=== PATIENT | female | born 1940 | race Caucasian/White ===

== ENCOUNTER 2017-08-09 15:30 | Inpatient (IN) ==
--- NOTE | 2017-08-09 17:54 | Internal Med History&Physical ---
Date of Encounter: 08/09/17 Time of Encounter: 17:51 Assessment and Plan (1) Acute diastolic heart failure Current visit: Yes Status: Acute No echocardiogram and her records. We will obtain echocardiogram. IV Cardizem to control rate. IV Lasix. Strict I's and O's. (2) Chronic kidney disease, stage III (moderate) Current visit: Yes Status: Acute Monitor kidney function closely. Avoid nephrotoxins. (3) Atrial fibrillation with RVR Current visit: No Status: Acute Check TSH, free T4. Trend troponin. Cardiac monitoring. Titrate Cardizem drip. Heart rate currently 120-140. At IV metoprolol if heart rate remains uncontrolled. Obtain echocardiogram. Consult cardiology. She is at high risk for morbidity and complications due to IV Cardizem infusion which requires close monitoring of vital signs. (4) Pulmonary edema Current visit: No Status: Acute l Secondary to acute diastolic heart failure triggered by A. fib with RVR. We will treat her with rate control. IV Lasix. Strict I's and O's. Daily weights. Fluid restriction. Qualifiers: Chronicity: acute Qualified Code(s): J81.0 - Acute pulmonary edema Internal Medicine - H&P: HPI Chief complaint: Shortness of breath Admitted From: Emergency Dept Plans for Post Hospital Care: Home History of present illness: Ms. Lipscomb is a 77 year old female with past medical history significant for hypertension, diabetes, chronic kidney disease and atrial fibrillation who presented to an outside hospital for shortness of breath. Today she experienced severe shortness of breath, triggered by minimal exertion such as walking a few feet and tying her shoelaces, not associated with cough chest pain or fever. Symptoms have been progressive for the last 2 weeks. 3 days ago she saw her family doctor who did an EKG diagnosed her with atrial fibrillation. He started her on Xarelto and metoprolol. Her symptoms did not improve and therefore today she presented to the hospital. At an outside facility she was found to be in A. fib with RVR. She was given IV Cardizem and initially converted to sinus rhythm however soon thereafter reverted to atrial fibrillation. She was transferred to our hospital for further care. A 10 point review of systems was negative except as stated above. Past medical history also includes history of stroke, surgical history cholecystectomy Family history pertinent for coronary artery disease in the patient's mother and cancer in the patient's father. Denies tobacco, alcohol and drug use. Lives at home independently. Past Med Surg Social Fam HX - Past Medical History Medical history: atrial fibrillation, CVA, diabetes, hyperlipidemia, hypertension, renal disease, other Psychiatric history: no psych history - Past Surgical History Surgical History: cholecystectomy - Social History Smoking Status: Never smoker Smokeless Tobacco Status: No Alcohol use: none Drug use: none - Family History Mother Adopted: [place]: Hussein Marissa Family Member Ethnicity: Non- Living Status: Age at : 89 Hx Family Cardiac Disorders: Yes ([place]) Hx Family Genitourinary Disorders: Yes (Kidney) Internal Medicine - H&P: Meds Calc/D3/Mag/Zn/Reed/Aris/[place] [Calcium 600 mg Plus Vit D Tab] 1 each PO DAILY 06/29/16 [History] Multivitamin [Multi-Day Vitamins] 1 each PO DAILY 06/29/16 [History] [place]-3 Fatty Acids [Fish Oil] 300 mg PO DAILY 06/29/16 [History] Vit C/Vit E AC/Lut/Copper/Zinc [Preservision Lutein Softgel] 1 each PO DAILY [History] Atorvastatin Calcium 80 mg PO DAILY 02/05/17 [History] Aspirin 81 mg PO DAILY 08/09/17 [History] Furosemide [Lasix] 40 mg PO DAILY 08/09/17 [History] Metoprolol Tartrate [Lopressor] 50 mg PO BID 08/09/17 [History] Potassium Chloride Er 1 PO DAILY 08/09/17 [History] Rivaroxaban [Xarelto] 20 mg PO DAILY 08/09/17 [History] 3 Allergy/AdvReac Type Severity Reaction Status Date / Time lisinopril Allergy Swelling Verified 08/09/17 12:55 of Lip/Tongue/Throat All Systems PM: A 10-system review of systems was performed and is negative for pertinent findings except as documented above in the HPI. - Head Head exam: Present: atraumatic, normocephalic - Eye Eye exam: Present: PERRL, conjuntiva pink, sclera anicteric Pupils: Present: PERRL - Neck Neck exam general surgery: Present: supple, trachea midline. Absent: lymphadenopathy - Respiratory Respiratory exam: Present: CTAB. Absent: accessory muscle use, rales, rhonchi, wheezes - Cardiovascular Cardiovascular exam: Present: irregular rhythm, +S1, +S2, tachycardia. Absent: diastolic murmur, gallop, rubs, systolic murmur - GI/Abdominal GI/Abdominal exam: Present: normal bowel sounds, soft, no peritoneal signs. Absent: distended, tenderness - Extremities Exam Extremities exam: Present: pedal edema (2+ lower extremity pitting edema bilaterally), warm, radial pulses palpable and symmetrical. Absent: calf tenderness, cyanotic - Neurological Exam Neurological exam: Present: CN II-XII intact, oriented X3, no focal deficits. Absent: facial droop, speech deficit - Skin Skin exam: Present: dry, intact Internal Med - H&P Results - Labs Labs: Upon review of medical records from [facility]: Lab work from 08/09/2017: With blood cell count 10.2, hemoglobin 13.9, INR 2.0, sodium 140, potassium 4.2, BUN 42, creatinine 1.83. BNP 814, troponin less than 0.03. - Impressions XR/XR chest 1V portable IMPRESSION: 1. New bilateral effusions with underlying bibasilar opacities most likely representing passive atelectasis, worse on the right. 2. Interstitial and perihilar airspace opacities suggestive of edema. Pneumonia could appear similar.
[2017-08-09] MEDS ORDERED: OXYCODONE Oral CONC 10 MG/0.5 ML ORAL.SYG SL PRN (18:04)
[2017-08-09] MEDS ORDERED: Ondansetron 4 MG/2 ML VIAL IVP PRN (18:04)
[2017-08-09] MEDS ORDERED: Acetaminophen 325 MG TABLET PO PRN (18:04)
[2017-08-09] MEDS ORDERED: Naloxone 0.4 MG/ML INJ IVP PRN (18:04)
[2017-08-09] MEDS: Aspirin 81 MG TAB.CHEW PO SCH (18:51)
[2017-08-09] MEDS ORDERED: *HR* Metoprolol 5 MG/5 ML VIAL IVP PRN (19:07)
[2017-08-09 19:14] LABS: INR 1.8; Prothrombin Time 20.1 Seconds (9.4-12.1)
[2017-08-09 19:26] LABS: Troponin I < 0.03 ng/mL (< 0.04)
[2017-08-09] MEDS ORDERED: Furosemide 20 MG/2 ML VIAL IVP ONE (19:30)
[2017-08-09 19:43] LABS: Thyroid Stimulating Hormone 3.266 mcIU/mL (0.340-5.600)
[2017-08-10 01:41] LABS: Basophils # 0.1 K/mcL (0.0-0.2); Basophils % 0.7 %; Eosinophils # 0.1 K/mcL (0.0-0.6); Eosinophils % 1.4 %; Hematocrit 38.8 % (35.3-44.9); Hemoglobin 12.6 g/dL (11.5-15.4); Immature Granulocytes % 0.3 % (0-4); Lymphocytes # 2.2 K/mcL (0.6-4.6); Lymphocytes % 21.4 %; Mean Corpuscular HGB Conc 32.5 g/dL (31.6-35.5); Mean Corpuscular Hemoglobin 28.8 pg (28.0-33.3); Mean Corpuscular Volume 88.8 fL (83.0-100.0); Monocytes # 1.1 K/mcL (0.0-1.3); Monocytes % 10.4 %; Neutrophils # 6.6 K/mcL (1.6-8.9); Platelet Count 272 K/mcL (140-400); Red Blood Count 4.37 M/mcL (3.82-4.97); Red Cell Distribution Width 14.3 % (11.5-14.5); Segmented Neutrophils % 65.8 %
[2017-08-10 02:09] LABS: Calcium 8.6 mg/dL (8.6-10.3); Potassium 3.9 mEq/L (3.5-5.1)
[2017-08-10] MEDS ORDERED: Furosemide 20 MG/2 ML VIAL IVP ONE (03:00)
[2017-08-10] MEDS ORDERED: Furosemide 40 MG/4 ML VIAL IVP SCH (08:00)
[2017-08-10] MEDS: Aspirin 81 MG TAB.CHEW PO SCH (08:48)
[2017-08-10] MEDS ORDERED: *HR* Rivaroxaban 10 MG TABLET PO SCH (09:00)
--- NOTE | 2017-08-10 09:29 | Cardiology Consult Note ---
Date of Encounter: 08/10/17 Time of Encounter: 09:27 Assessment and Plan (1) CHF (congestive heart failure), NYHA class III Current Visit: Yes Status: Acute Complaining of dyspnea on exertion and orthopnea for the last 2 weeks. Currently chest x-ray shows pulmonary edema Lasix 20 mg IV Q8 hours times to and hold to reassess portable chest x-ray Fierro catheter strict I/O's ischemic work up when you euvolemic Qualifiers: Congestive heart failure type: unspecified Qualified Code(s): I50.9 - Heart failure, unspecified (2) Atrial fibrillation with RVR Current Visit: Yes Status: Acute Likely new onset atrial fibrillation hold xarelto and start IV heparin per DVT protocol titrate Cardizem drip to heart rate below 100 and hold for systolic blood pressure less than 100 mmHg echocardiogram pending Discussion w patient/family: The assessment and plan as outlined above was discussed with the patient and/or family members who expressed understanding and agreement. All questions were answered. Thank you for involving us in the care of your patient. Please call with any questions. History of Present Illness Consult date: 08/10/17 Consult reason: Afib Chief complaint: SOB and palpitations History of present illness: Ms. Lipscomb is a 77 year old female with history of hypertension, chronic kidney disease, recent diagnosis of atrial fibrillation presents with shortness of breath on exertion for the last 2 weeks. She was seen and evaluated by her primary care physician and started on anticoagulation as well as metoprolol. She has an elevated BNP of 814 and elevated creatinine. Her chest x-ray shows bilateral effusions and pulmonary edema. She denies specifically chest pain however describes chest tightness with her shortness of breath. Currently her components are negative however in June 2016 she was found to have a troponin of .44 on record. She denies any cardiac testing or procedures in the past Past Med Surg Social Fam HX - Past Medical History Medical history: atrial fibrillation, CVA, diabetes, hyperlipidemia, hypertension, renal disease, other Psychiatric history: no psych history - Past Surgical History Surgical History: cholecystectomy - Social History Smoking Status: Never smoker Smokeless Tobacco Status: No Alcohol use: none Drug use: none - Family History Mother Adopted: [place]: [employer] Family Member Ethnicity: Non- Living Status: Age at : 89 Hx Family Cardiac Disorders: Yes ([place]) Hx Family Genitourinary Disorders: Yes (Kidney) Medications and Allergies Calc/D3/Mag/Zn/Reed/Aris/[place] [Calcium 600 mg Plus Vit D Tab] 1 each PO DAILY 06/29/16 [History] Multivitamin [Multi-Day Vitamins] 1 each PO DAILY 06/29/16 [History] [place]-3 Fatty Acids [Fish Oil] 300 mg PO DAILY 06/29/16 [History] Vit C/Vit E AC/Lut/Copper/Zinc [Preservision Lutein Softgel] 1 each PO DAILY [History] Atorvastatin Calcium 80 mg PO DAILY 02/05/17 [History] Aspirin 81 mg PO DAILY 08/09/17 [History] Furosemide [Lasix] 40 mg PO DAILY 08/09/17 [History] Metoprolol Tartrate [Lopressor] 50 mg PO BID 08/09/17 [History] Potassium Chloride Er 1 PO DAILY 08/09/17 [History] Rivaroxaban [Xarelto] 20 mg PO DAILY 08/09/17 [History] 3 Allergy/AdvReac Type Severity Reaction Status Date / Time lisinopril Allergy Swelling Verified 08/09/17 12:55 of Lip/Tongue/Throat All Systems Review: The remainder of the systems were reviewed and are negative Physical Examination Vital Signs, Last 4 Hours Temp Pulse Resp BP Pulse Ox 08/10/17 07:22 97.4 F L 130 17 102/85 93 08/10/17 06:00 92 16 108/93 95 08/10/17 05:40 96 16 99/59 97 General: Conversant, No Apparent Distress HEENT: Atraumatic, Normocephaly, Mucus Membranes Moist Neck: No JVD, Normal carotid pulses Cardiac: Reg Rate and Rhythm (Irregular irregular rhythm), Normal S1 and S2, No Murmur Lungs: Normal Breath Sounds, No Wheeze, Rales, Rhonchi (bibasilar crackles), Other Neuro: Alert and responsive, No focal deficits noted Abdomen: Soft, Non-Tender Skin: No rashes noted on visualized skin Musculoskeletal: No Chest Wall Tenderness Extremities: No Clubbing, No Cyanosis, No Edema (Bilateral lower extremity edema ), Normal Pulses Results 08/10/17 00:27 08/10/17 00:27 Lab Results 08/09/17 08/09/17 08/10/17 18:30 18:30 00:27 WBC Hgb Hct Plt Count INR 1.8 Sodium Potassium Chloride Carbon Dioxide BUN Creatinine Glucose Calcium Magnesium Troponin I < 0.03 < 0.03 TSH 3.266 08/10/17 08/10/17 00:27 00:27 WBC 10.1 Hgb 12.6 Hct 38.8 Plt Count 272 INR Sodium 143 Potassium 3.9 Chloride 112 H Carbon Dioxide 22 L BUN 43 H Creatinine 1.54 H Glucose 162 H Calcium 8.6 Magnesium 2.0 Troponin I TSH Consult Discharge Plan - Plan Referrals: Jimmy Andrew MD [Primary Care Provider] -
[2017-08-10] MEDS ORDERED: *HR* Rivaroxaban 15 MG TABLET PO SCH ×2 (10:30→17:00)
--- NOTE | 2017-08-10 10:30 | Event Note ---
Date of Encounter: 08/10/17 Time of Encounter: 10:20 - Cardiology Event Note Per Dr. Lopes: Patient will likely need an ischemic evaluation (stress vs. LHC). Hold Xarelto (afib), will start Heparin gtt per standard protocol 24 hours after Xarelto dose (given 08/10/17 at 0848). Orders placed to start heparin gtt tomorrow at 0840. See Cardiology consult note for full recommendations. Will continue to follow.
[2017-08-10] MEDS ORDERED: Furosemide 40 MG/4 ML VIAL IVP ONE (13:46)
--- NOTE | 2017-08-10 13:55 | Internal Med Progress Note ---
Date of Encounter: 08/10/17 Time of Encounter: 13:47 - Assessment and plan (1) Atrial fibrillation with RVR Current Visit: Yes Status: Acute Assessment and plan: New onset atrail fib, continue BB, d/c cardiazem drip, start amiodarone due to low EF 20%-30% normal TSH, negative trop (2) Acute respiratory failure with hypoxia Current Visit: Yes Status: Acute Assessment and plan: from pulmonary edema, and acute CHF, will give iv lasix, O2 (3) Chronic kidney disease, stage III (moderate) Current Visit: Yes Status: Acute Assessment and plan: CKD III with leg swelling, monitor Cr (4) CHF (congestive heart failure), NYHA class III Current Visit: Yes Status: Acute Assessment and plan: Acute systolic CHF with EF 20-30%, continue BB, lasix check BNP cardiology is on board, will need ischemic work up Qualifiers: Congestive heart failure type: systolic Congestive heart failure chronicity : acute Qualified Code(s): I50.21 - Acute systolic (congestive) heart failure (5) Hypertension Current Visit: Yes Status: Acute Assessment and plan: was won amlodipine, on hold due to CHF Qualifiers: Hypertension type: essential hypertension Qualified Code(s): I10 - Essential (primary) hypertension - Time Spent With Patient 25 - 35 minutes - Subjective Interval history: Ms. Lipscomb is a 77 year old female with past medical history significant for hypertension, diabetes, chronic kidney disease and atrial fibrillation who presented to an outside hospital for shortness of breath and leg swelling. Symptoms have been progressive for the last 2 weeks. 3 days ago she saw her family doctor who did an EKG diagnosed her with atrial fibrillation. He started her on Xarelto and metoprolol. Her symptoms did not improve and therefore today she presented to the hospital. At an outside facility she was found to be in A. fib with RVR. She was admitted for atrial fib with RVR. 1. New atrial fib with RVR, conitnue heparin drip, BB 2. New acute systolic CHF with EF 20-30 %, conitnue BB, cardiology is on board, give IV lasix 40 mg times one 3. acute Hypoxic respiratory failure from pulmonary edemia from CHF, on O2 4. CKD III Patient is still any shortness of breasts, and the severe swelling to lower extremity discussed with wean off cardiazem drip due to low EF, will use amiodarone if HR is unable to control - Constitutional Vitals: Temp Pulse Resp BP Pulse Ox 97.6 F 103 15 113/72 91 08/10/17 11:19 08/10/17 11:19 08/10/17 11:19 08/10/17 11:19 08/10/17 11:19 General appearance: Present: A&O X 3, pleasant, no acute distress Exam: CONSTITUTIONAL: patient appears as an age appropriate female in no acute distress. EYES Clear sclerae, bilateral pupils are equal, reactive to light. EMOI. RESPIRATORY: No accessory muscle use, bilateral clear to auscultation, no wheezing, no crackles/rales. CARDIOVASCULAR: Regular heart rate, normal S1 and S2, no murmurs GASTROINTESTINAL: bowel sounds present, soft, no tenderness. MUSCULOSKELETAL: Joints in normal range of motion, no clubbing, +++ edema, no cyanosis. Bilateral peripheral pulses 2+. NEUROLOGIC: CN II to XII are grossly intact, no focal neurological deficit. Internal Medicine: Result - Labs CBC & Chem 7: 08/10/17 00:27 08/10/17 00:27 Labs: Short CBC 08/10/17 Range/Units 00:27 WBC 10.1 (4.3-11.1) K/mcL Hgb 12.6 (11.5-15.4) g/dL Hct 38.8 (35.3-44.9) % Plt Count 272 (140-400) K/mcL Neutrophils # 6.6 (1.6-8.9) K/mcL BMP 08/10/17 00:27 Sodium 143 Potassium 3.9 Chloride 112 H Carbon Dioxide 22 L BUN 43 H Creatinine 1.54 H Glucose 162 H Calcium 8.6 Cardiac Enzymes 08/09/17 08/10/17 Range/Units 18:30 00:27 Troponin I < 0.03 < 0.03 (< 0.04) ng/mL - ABG Interpretation ABG results: PT/INR, D-dimer PT 20.1 Seconds (9.4-12.1) H 08/09/17 18:30 - Impressions Impressions Chest X-Ray 08/10/17 06:00 IMPRESSION: Improved aeration of the lung bases. There is decreased pleural-parenchymal disease at the lung bases D/ / Shad Klein MD / Shad Klein MD Interpreting Provider: Shad Klein MD Echocardiogram 08/10/17 18:09 Impressions: LVEF 20-30%. Moderate Mitral Regurge (central Jet) Indeterminate diastolic function. Normal right ventricular structure and function. Mildly dilated left atrium. Estimated RA pressure is 20 mmHg. Left Ventricular Wall Motion: Rest Echo Findings The apex, apical inferior, mid inferior, basal inferior, apical anterior, mid anterior, basal anterior, apical septal, mid inferior septal, basal inferior septal, apical lateral, mid anterior lateral, basal anterior lateral, mid anterior septal, mid inferior lateral, basal anterior septal and basal inferior lateral reyna were hypokinetic. Findings: Study Quality * Technically adequate exam. ECG Findings * Atrial fibrillation. Left Ventricle * LVEF 20-30%. * Severe global left ventricular systolic dysfunction. * Indeterminate diastolic function. Right Ventricle * Normal right ventricular structure and function. Left Atrium * Mildly dilated left atrium. Right Atrium * Normal right atrial size. Interatrial Septum * No evidence of PFO by color Doppler. Aortic Valve * Trileaflet aortic valve. * Trileaflet aortic valve with normal function. Tricuspid Valve * Mild tricuspid regurgitation. * Estimated RVSP is 29 mmHg. * Estimated RA pressure is 20 mmHg. * Mild pulmonary hypertension. Pulmonic Valve * Pulmonic valve not well visualized. Aorta * Normally sized aortic root. Pericardium * The pericardium appears normal. IVC * The IVC is dilated. * IVC plethora is noted ADDENDUM: 08/10/17 1210 Impressions: LVEF 20-30%. Moderate Mitral Regurge (central Jet) Indeterminate diastolic function. Normal right ventricular structure and function. Mildly dilated left atrium. Estimated RA pressure is 20 mmHg. Left Ventricular Wall Motion: Rest Echo Findings The apex, apical inferior, mid inferior, basal inferior, apical anterior, mid anterior, basal anterior, apical septal, mid inferior septal, basal inferior septal, apical lateral, mid anterior lateral, basal anterior lateral, mid anterior septal, mid inferior lateral, basal anterior septal and basal inferior lateral reyna were hypokinetic. Findings: Study Quality * Technically adequate exam. ECG Findings * Atrial fibrillation. Left Ventricle * LVEF 20-30%. * Severe global left ventricular systolic dysfunction. * Indeterminate diastolic function. Right Ventricle * Normal right ventricular structure and function. Left Atrium * Mildly dilated left atrium. Right Atrium * Normal right atrial size. Interatrial Septum * No evidence of PFO by color Doppler. Aortic Valve * Trileaflet aortic valve. * Trileaflet aortic valve with normal function. Tricuspid Valve * Mild tricuspid regurgitation. * Estimated RVSP is 29 mmHg. * Estimated RA pressure is 20 mmHg. * Mild pulmonary hypertension. Pulmonic Valve * Pulmonic valve not well visualized. Aorta * Normally sized aortic root. Pericardium * The pericardium appears normal. IVC * The IVC is dilated. * IVC plethora is noted - VTE Documentation of Mechanical Device: Intermittent pneumatic compression device Consult Discharge Plan - Plan Referrals: Jimmy Andrew MD [Primary Care Provider] -
[2017-08-10] MEDS ORDERED: Amiodarone Premix 360 MG/200 ML BAG IVC ONE (13:59)
[2017-08-10] MEDS: Amiodarone Premix 360 MG/200 ML BAG IVC SCH (20:48)
[2017-08-11 05:59] LABS: Basophils # 0.1 K/mcL (0.0-0.2); Basophils % 0.5 %; Eosinophils # 0.2 K/mcL (0.0-0.6); Eosinophils % 1.5 %; Hematocrit 39.8 % (35.3-44.9); Hemoglobin 12.7 g/dL (11.5-15.4); Immature Granulocytes % 0.2 % (0-4); Lymphocytes # 1.8 K/mcL (0.6-4.6); Lymphocytes % 17.7 %; Mean Corpuscular HGB Conc 31.9 g/dL (31.6-35.5); Mean Corpuscular Hemoglobin 28.3 pg (28.0-33.3); Mean Corpuscular Volume 88.6 fL (83.0-100.0); Mean Platelet Volume 11.1 fL (9.4-12.4); Monocytes # 1.1 K/mcL (0.0-1.3); Monocytes % 10.8 %; Neutrophils # 7.1 K/mcL (1.6-8.9); Platelet Count 280 K/mcL (140-400); Red Blood Count 4.49 M/mcL (3.82-4.97); Red Cell Distribution Width 14.5 % (11.5-14.5); Segmented Neutrophils % 69.3 %
[2017-08-11 06:04] LABS: INR 1.6
[2017-08-11 06:07] LABS: Activated Partial Thrombo Time 29.8 Seconds (26.0-36.0)
[2017-08-11 06:21] LABS: Calcium 8.6 mg/dL (8.6-10.3); Potassium 3.6 mEq/L (3.5-5.1)
[2017-08-11] MEDS: Amiodarone Premix 360 MG/200 ML BAG IVC SCH ×2 (08:18→19:58)
[2017-08-11] MEDS ORDERED: Heparin 25,000 UNIT/500 ML D5W 25,000 UNIT/500 ML BAG IVC SCH (08:30)
[2017-08-11] MEDS ORDERED: *HR* Heparin 5,000 UNIT/ML VIAL IVP PRN ×2 (09:00)
--- NOTE | 2017-08-11 09:44 | Cardiology Progress Note ---
Date of Encounter: 08/11/17 Time of Encounter: 09:45 Assessment and Plan (1) Atrial fibrillation with RVR Current Visit: Yes Status: Acute Per Cardiology: Previously seen by cardiology Dr. Woodall September 2016 with cryptogenic stroke. At that point loop recorder discussed, however patient declined. Appears to possibly have history of atrial fibrillation and started on anticoagulation by PCP of Xarelana m. Continues A. fib with RVR in the 110s to 130s. On Lopressor 50 mg by mouth twice a day with current systolic blood pressures in the 110s. Will switch to Toprol-XL 25 mg by mouth twice a day-- titrate as able. Now on amiodarone drip. Regarding long-term anticoagulation, Xarelto on hold for potential left heart catheterization. Remains on heparin drip. Denies any active bleeding or blood loss. (2) CHF (congestive heart failure), NYHA class III Current Visit: Yes Status: Acute Per Cardiology: EF on echo 20-30%. According to records patient's net negative 3020ml. Reports baseline weight 168 pounds, currently 187 pounds. We will give IV Lasix 40 mg 1 now and continue with diuresis. Continue strict I and O, daily weights, fluid restriction. Qualifiers: Congestive heart failure type: systolic Congestive heart failure chronicity : acute Qualified Code(s): I50.21 - Acute systolic (congestive) heart failure (3) Chronic kidney disease, stage III (moderate) Current Visit: Yes Status: Chronic Per Cardiology: Past history of CK D stage IIIB, kidney function remains about baseline. Monitor closely with diuresis. Will monitor closely if proceed with catheterization as well. Discussion w patient/family: The assessment and plan as outlined above was discussed with the patient and/or family members who expressed understanding and agreement. All questions were answered. Thank you for involving us in the care of your patient. Please call with any questions. Discussed with nurse addressing CODE STATUS with patient and primary team. Subjective Principal diagnosis: afib Interval history: Patient denies any chest pain. Reports short of breath and bilateral lower extremity swelling has improved. Of note, patient does not desire aggressive measures and verbally stated she wishes to be DNR. Objective Vital Signs, Last 4 Hours Temp Pulse Resp BP Pulse Ox 08/11/17 07:58 97.8 F 122 25 106/89 94 08/11/17 06:00 117 20 111/78 98 General: Conversant, No Apparent Distress HEENT: Atraumatic, Normocephaly, Mucus Membranes Moist Neck: No JVD, Normal carotid pulses Cardiac: Reg Rate and Rhythm, Normal S1 and S2, No Murmur Lungs: Normal Breath Sounds, No Wheeze, Rales, Rhonchi Neuro: Alert and responsive, No focal deficits noted Abdomen: Soft, Non-Tender Skin: No rashes noted on visualized skin Musculoskeletal: No Chest Wall Tenderness Extremities: No Clubbing, No Cyanosis, No Edema, Normal Pulses, Other (Trace pitting bilateral LE) Results 08/11/17 05:37 08/11/17 05:37 Lab Results Laboratory Tests 05/17/14 11/16/15 08/09/17 07:33 07:14 18:30 INR Creatinine 1.21 H 1.55 H Est GFR (Non-Af Amer) Magnesium Troponin I < 0.03 B-Natriuretic Peptide TSH 3.266 08/10/17 08/10/17 08/11/17 00:27 14:07 05:37 INR 1.6 Creatinine Est GFR (Non-Af Amer) Magnesium Troponin I < 0.03 B-Natriuretic Peptide 571 H TSH 08/11/17 05:37 INR Creatinine 1.67 H Est GFR (Non-Af Amer) 30 L Magnesium 2.0 Troponin I B-Natriuretic Peptide TSH ITS Impressions Chest X-Ray 08/10/17 06:00 IMPRESSION: Improved aeration of the lung bases. There is decreased pleural-parenchymal disease at the lung bases D/ / Shad Klein MD / Shad Klein MD Interpreting Provider: Shad Klein MD Echocardiogram 08/10/17 18:09 Impressions: LVEF 20-30%. Moderate Mitral Regurge (central Jet) Indeterminate diastolic function. Normal right ventricular structure and function. Mildly dilated left atrium. Estimated RA pressure is 20 mmHg. Left Ventricular Wall Motion: Rest Echo Findings The apex, apical inferior, mid inferior, basal inferior, apical anterior, mid anterior, basal anterior, apical septal, mid inferior septal, basal inferior septal, apical lateral, mid anterior lateral, basal anterior lateral, mid anterior septal, mid inferior lateral, basal anterior septal and basal inferior lateral reyna were hypokinetic. Findings: Study Quality * Technically adequate exam. ECG Findings * Atrial fibrillation. Left Ventricle * LVEF 20-30%. * Severe global left ventricular systolic dysfunction. * Indeterminate diastolic function. Right Ventricle * Normal right ventricular structure and function. Left Atrium * Mildly dilated left atrium. Right Atrium * Normal right atrial size. Interatrial Septum * No evidence of PFO by color Doppler. Aortic Valve * Trileaflet aortic valve. * Trileaflet aortic valve with normal function. Tricuspid Valve * Mild tricuspid regurgitation. * Estimated RVSP is 29 mmHg. * Estimated RA pressure is 20 mmHg. * Mild pulmonary hypertension. Pulmonic Valve * Pulmonic valve not well visualized. Aorta * Normally sized aortic root. Pericardium * The pericardium appears normal. IVC * The IVC is dilated. * IVC plethora is noted ADDENDUM: 08/10/17 1210 Impressions: LVEF 20-30%. Moderate Mitral Regurge (central Jet) Indeterminate diastolic function. Normal right ventricular structure and function. Mildly dilated left atrium. Estimated RA pressure is 20 mmHg. Left Ventricular Wall Motion: Rest Echo Findings The apex, apical inferior, mid inferior, basal inferior, apical anterior, mid anterior, basal anterior, apical septal, mid inferior septal, basal inferior septal, apical lateral, mid anterior lateral, basal anterior lateral, mid anterior septal, mid inferior lateral, basal anterior septal and basal inferior lateral reyna were hypokinetic. Findings: Study Quality * Technically adequate exam. ECG Findings * Atrial fibrillation. Left Ventricle * LVEF 20-30%. * Severe global left ventricular systolic dysfunction. * Indeterminate diastolic function. Right Ventricle * Normal right ventricular structure and function. Left Atrium * Mildly dilated left atrium. Right Atrium * Normal right atrial size. Interatrial Septum * No evidence of PFO by color Doppler. Aortic Valve * Trileaflet aortic valve. * Trileaflet aortic valve with normal function. Tricuspid Valve * Mild tricuspid regurgitation. * Estimated RVSP is 29 mmHg. * Estimated RA pressure is 20 mmHg. * Mild pulmonary hypertension. Pulmonic Valve * Pulmonic valve not well visualized. Aorta * Normally sized aortic root. Pericardium * The pericardium appears normal. IVC * The IVC is dilated. * IVC plethora is noted Intake & Output 08/08/17 08/09/17 08/10/17 08/11/17 23:59 23:59 23:59 23:59 Intake Total 300 / 300 530 / 530 200 / 200 Output Total 650 / 650 3150 / 3150 250 / 250 Balance -350 / -350 -2620 / -2620 -50 / -50 Weight 85.7 kg 86.2 kg 85.4 kg Active Medications Acetaminophen (Tylenol) 650 mg PO Q6HR PRN PRN Reason: Mild Pain/Fever Stop: 02/08/18 18:05 Aspirin (Aspirin) 81 mg PO DAILY [facility] Stop: 02/08/18 18:16 Last Admin: 08/10/17 08:48 Dose: 81 mg Atorvastatin Calcium (Lipitor) 80 mg PO DAILY [facility] Stop: 02/09/18 09:01 Last Admin: 08/10/17 08:48 Dose: 80 mg Heparin Sodium (Porcine) (Heparin) 6,000 unit 70 unit/kg (6000 unit) IVP Q6HR PRN PRN Reason: SEE COMMENTS Stop: 02/10/18 09:01 Last Admin: 08/11/17 09:12 Dose: 6,000 unit Heparin Sodium (Porcine) (Heparin) 3,000 unit 35 unit/kg (3000 unit) IVP Q6H PRN PRN Reason: SEE COMMENTS Stop: 02/10/18 09:01 Heparin Sodium/Dextrose (Heparin 25,000 Unit/500 Ml D5w) 25,000 unit in 500 mls @ 24.136 mls/hr IVC .[id number] [facility]; 14 UNIT/KG/HR PRN Reason: Protocol Stop: 02/10/18 08:31 Last Admin: 08/11/17 09:03 Dose: 14 unit/kg/hr, 24.136 mls/hr Amiodarone HCl/Dextrose (Amiodarone Drip Premix 360mg/200ml) 360 mg in 200 mls @ 16.667 mls/hr IVC CONT [facility] PRN Reason: 0.5 MG/MIN Stop: 02/09/18 14:01 Last Admin: 08/11/17 08:18 Dose: 0.5 mg/min, 16.667 mls/hr Metoprolol Tartrate (Lopressor) 50 mg PO BID [facility] Stop: 02/08/18 21:01 Last Admin: 08/10/17 20:48 Dose: 50 mg Metoprolol Tartrate (Lopressor) 5 mg IVP Q6HR PRN PRN Reason: Tachycardia Stop: 02/08/18 19:08 Naloxone HCl (Narcan) 0.4 mg IVP Q2MIN PRN PRN Reason: SEE COMMENTS Stop: 02/08/18 18:05 Ondansetron HCl (Zofran) 4 mg IVP Q8HR PRN PRN Reason: Nausea And Vomiting Stop: 02/08/18 18:05 Oxycodone HCl (Oxycodone Oral Conc) 5 mg SL Q4H PRN; Protocol PRN Reason: mild to moderate pain Stop: 02/08/18 18:05 Rivaroxaban (Xarelto) 15 mg PO 1700 [facility] Stop: 02/09/18 10:31 - Imaging and Cardiology Echo: report reviewed - EKG Interpretation EKG results cardiology: personally reviewed (A. fib in the 140s), other ( Telemetry reviewed with average heart rate the past 12 hours 116, currently A. fib in the 110s to 130s) - VTE Documentation of Mechanical Device: Intermittent pneumatic compression device Consult Discharge Plan - Plan Referrals: Jimmy Andrew MD [Primary Care Provider] - (Web request sent on 08/11 at 8: 48 am)
[2017-08-11] MEDS: Aspirin 81 MG TAB.CHEW PO SCH (10:46)
[2017-08-11] MEDS ORDERED: Furosemide 40 MG/4 ML VIAL IVP ONE (11:01)
--- NOTE | 2017-08-11 13:07 | Internal Med Progress Note ---
Date of Encounter: 08/11/17 Time of Encounter: 13:01 - Assessment and plan (1) Atrial fibrillation with RVR Current Visit: Yes Status: Acute Assessment and plan: New onset atrail fib, continue BB, continue amiodarone due to low EF 20%-30% normal TSH, negative trop patient declined cardiac cath today, heaprin drip stopped, started on xarelto ( home medication) (2) Acute respiratory failure with hypoxia Current Visit: Yes Status: Acute Assessment and plan: from pulmonary edema, and acute CHF, continue iv lasix, monitor Cr daily, wean O2 (3) Chronic kidney disease, stage III (moderate) Current Visit: Yes Status: Chronic Assessment and plan: CKD III with leg swelling, monitor Cr may need nephrology consult if Cr got worse (4) CHF (congestive heart failure), NYHA class III Current Visit: Yes Status: Acute Assessment and plan: Acute systolic CHF with EF 20-30%, continue BB, lasix BNP 571 cardiology is on board, patient refused heart cath Qualifiers: Congestive heart failure type: systolic Congestive heart failure chronicity : acute Qualified Code(s): I50.21 - Acute systolic (congestive) heart failure (5) Hypertension Current Visit: Yes Status: Acute Assessment and plan: was won amlodipine, on hold due to CHF Qualifiers: Hypertension type: essential hypertension Qualified Code(s): I10 - Essential (primary) hypertension - Time Spent With Patient 25 - 35 minutes - Subjective Interval history: Ms. Lipscomb is a 77 year old female with past medical history significant for hypertension, diabetes, chronic kidney disease and atrial fibrillation who presented to an outside hospital for shortness of breath and leg swelling. Symptoms have been progressive for the last 2 weeks. 3 days ago she saw her family doctor who did an EKG diagnosed her with atrial fibrillation. He started her on Xarelto and metoprolol. Her symptoms did not improve and therefore today she presented to the hospital. At an outside facility she was found to be in A. fib with RVR. She was admitted for atrial fib with RVR. 1. New atrial fib with RVR, on BB, amiodarone drip, restart home xarelto 2. New acute systolic CHF with EF 20-30 %, conitnue BB, cardiology is on board, will give IV lasix 3. acute Hypoxic respiratory failure from pulmonary edemia from CHF, on O2 4. CKD III, 5. DNR-CCA DNI Patient is still very shortness of breath, and swelling to lower extremity, she does not feeling well patient declined heart cath today - Constitutional Vitals: Temp Pulse Resp BP Pulse Ox 98.2 F 133 17 116/99 90 08/11/17 11:07 08/11/17 11:07 08/11/17 11:07 08/11/17 11:07 08/11/17 11:07 General appearance: Present: A&O X 3, pleasant, no acute distress Exam: CONSTITUTIONAL: patient appears as an age appropriate female in no acute distress. EYES Clear sclerae, bilateral pupils are equal, reactive to light. EMOI. RESPIRATORY: No accessory muscle use, bilateral crackles/rales. CARDIOVASCULAR: Regular heart rate, normal S1 and S2, no murmurs GASTROINTESTINAL: bowel sounds present, soft, no tenderness. MUSCULOSKELETAL: Joints in normal range of motion, no clubbing, no edema, +++ cyanosis. Bilateral peripheral pulses 2+. NEUROLOGIC: CN II to XII are grossly intact, no focal neurological deficit. Internal Medicine: Result - Labs CBC & Chem 7: 08/11/17 05:37 08/11/17 05:37 Labs: Short CBC 08/11/17 Range/Units 05:37 WBC 10.2 (4.3-11.1) K/mcL Hgb 12.7 (11.5-15.4) g/dL Hct 39.8 (35.3-44.9) % Plt Count 280 (140-400) K/mcL Neutrophils # 7.1 (1.6-8.9) K/mcL BMP 08/11/17 05:37 Sodium 143 Potassium 3.6 Chloride 111 H Carbon Dioxide 22 L BUN 42 H Creatinine 1.67 H Glucose 150 H Calcium 8.6 - ABG Interpretation ABG results: PT/INR, D-dimer PT 17.0 Seconds (9.4-12.1) H 08/11/17 05:37 - VTE Documentation of Mechanical Device: Intermittent pneumatic compression device Consult Discharge Plan - Plan Referrals: Jimmy Andrew MD [Primary Care Provider] - 08/18/17 3:30 am ()
[2017-08-11] MEDS: Furosemide 40 MG/4 ML VIAL IVP SCH (14:30)
[2017-08-11] MEDS ORDERED: *HR* Rivaroxaban 15 MG TABLET PO SCH (17:00)
[2017-08-11] MEDS: Metoprolol XL (24 HR) Succ 25 MG TAB.ER.24H PO SCH (19:59)
[2017-08-12 04:51] LABS: Calcium 8.6 mg/dL (8.6-10.3); Potassium 3.7 mEq/L (3.5-5.1)
[2017-08-12] MEDS: Amiodarone Premix 360 MG/200 ML BAG IVC SCH ×2 (08:00→20:39)
[2017-08-12] MEDS: Metoprolol XL (24 HR) Succ 25 MG TAB.ER.24H PO SCH ×2 (08:25→20:08)
[2017-08-12] MEDS: Furosemide 40 MG/4 ML VIAL IVP SCH (08:25)
[2017-08-12] MEDS: Aspirin 81 MG TAB.CHEW PO SCH (08:25)
--- NOTE | 2017-08-12 09:47 | Internal Med Progress Note ---
<Yasemin Brewster - Last Filed: 08/12/17 16:58> Date of Encounter: 08/12/17 Time of Encounter: 10:07 - Assessment and plan (1) Atrial fibrillation with RVR Current Visit: Yes Status: Acute Assessment and plan: Recent diagnosis of a family, started on Xarelto by PCP is outpatient. Echo from 08/10/17 showed LVEF 20-30%, moderate mitral regurgitation, indeterminate diastolic function, normal right ventricular structure and function, mildly dilated left atrium. Cardiology had previously spoken to patient about the recommendations for LHC Leonor but patient had originally declined LHC. However today, patient is agreeable to getting LHC. Plan: lasix IV 40mg daily digoxin loading per cardio appreciate cardiology recommendations. continue toprol XL, amiodarone gtt strict I/O daily weights plan for LHC tomorrow per cardio. NPO after midnight, stop xarelto, start heparin gtt Is not a good candidate for Xarelto because of age, CKD. after LHC, will switch to coumadin and discharge. 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 Continue to monitor. (5) Hypertension Current Visit: Yes Status: Acute Qualifiers: Hypertension type: essential hypertension Qualified Code(s): I10 - Essential (primary) hypertension (6) DVT prophylaxis Current Visit: Yes Status: Acute Assessment and plan: stopped xarelto, continue heparin gtt - Subjective Interval history: 62-year-old female evaluated at bedside. Patient denies nausea, vomiting, diarrhea, fever, chills, chest pain. She does admit to intermittent shortness of breath. She denies any new problems today. - Constitutional Vitals: Temp Pulse Resp BP Pulse Ox 97.8 F 106 16 108/83 95 08/12/17 08:35 08/12/17 08:35 08/12/17 08:35 08/12/17 08:35 08/12/17 08:35 General appearance: Present: A&O X 3, pleasant, no acute distress, answers questions appropriately - Head Head exam: Present: atraumatic, normocephalic - Neck Neck exam general surgery: Present: supple, trachea midline - Respiratory Respiratory exam: Present: CTAB - Cardiovascular Cardiovascular exam: Present: +S1, +S2 - Extremities Exam Extremities exam: Absent: cyanotic Additional comments: +1 bilateral lower extremity pitting edema. - Neurological Exam Neurological exam: Present: alert, oriented X3, no focal deficits - Psychiatric Psychiatric exam: Present: normal affect, normal mood Internal Medicine: Result - Labs CBC & Chem 7: 08/12/17 11:03 08/12/17 02:47 Labs: BMP 08/12/17 02:47 Sodium 142 Potassium 3.7 Chloride 110 H Carbon Dioxide 23 BUN 37 H Creatinine 1.45 H Glucose 139 H Calcium 8.6 - ABG Interpretation ABG results: PT/INR, D-dimer PT 17.0 Seconds (9.4-12.1) H 08/11/17 05:37 - VTE Documentation of Mechanical Device: Intermittent pneumatic compression device Consult Discharge Plan - Plan Referrals: Jimmy Andrew MD [Primary Care Provider] - 08/18/17 3:30 am () <Berry Rodrigez - Last Filed: 08/12/17 18:46> Date of Encounter: 08/12/17 - Constitutional Vitals: Temp Pulse Resp BP Pulse Ox 97.8 F 100 16 108/83 91 08/12/17 16:13 08/12/17 16:13 08/12/17 16:13 08/12/17 16:13 08/12/17 16:13 Internal Medicine: Result - Labs CBC & Chem 7: 08/12/17 11:03 08/12/17 02:47 Labs: Short CBC 08/12/17 Range/Units 11:03 WBC 10.7 (4.3-11.1) K/mcL Hgb 13.9 (11.5-15.4) g/dL Hct 44.1 (35.3-44.9) % Plt Count 300 (140-400) K/mcL BMP 08/12/17 02:47 Sodium 142 Potassium 3.7 Chloride 110 H Carbon Dioxide 23 BUN 37 H Creatinine 1.45 H Glucose 139 H Calcium 8.6 - ABG Interpretation ABG results: PT/INR, D-dimer PT 16.4 Seconds (9.4-12.1) H 08/12/17 11:03 - Attending Attestation I examined this patient and my medical decision-making was reviewed with the Resident Physician. I agree with the documented findings, disposition and treatment plan as described except to the extent set forth below. Upon discharge, we will be changing her to Coumadin, due to under age and renal dysfunction.
[2017-08-12] MEDS ORDERED: *HR* Heparin 5,000 UNIT/ML VIAL IVP PRN ×2 (10:43)
[2017-08-12] MEDS ORDERED: *HR* Digoxin 0.5 MG/2 ML AMPUL IVP ONE ×2 (10:50→17:00)
--- NOTE | 2017-08-12 10:56 | Cardiology Progress Note ---
Date of Encounter: 08/12/17 Time of Encounter: 09:00 Assessment and Plan (1) Atrial fibrillation with RVR Current Visit: Yes Status: Acute Per Cardiology: Previously seen by cardiology Dr. Woodall September 2016 with cryptogenic stroke. At that point loop recorder discussed, however patient declined. Appears to possibly have history of atrial fibrillation and started on anticoagulation by PCP of Xarelto. Continues A. fib with RVR in the 100s to 1200s. On Toprol-XL 25 mg by mouth twice a day, last SBP 90's. Remains on amiodarone drip. Discussed and reviewed with Dr. Smith, we will proceed with digoxin 0.5 mg 1 now followed by 0.25 mg and 6 hours only (Has CKD). Regarding long-term anticoagulation, received Xarelto yesterday evening, now has decided to proceed with catheterization. Will once again hold and initiate heparin drip. Patient now willing to proceed with left heart catheterization. We will continue with rate control and diuresis. Plan for possible catheterization tomorrow. We will hold Xarelto. Resume heparin drip. Patient willing to temporarily hold DNR status for 24 hours at time of procedure. (2) CHF (congestive heart failure), NYHA class III Current Visit: Yes Status: Acute Per Cardiology: EF on echo 20-30%. According to records patient's net - 4040ml. Reports baseline weight 168 pounds, currently 187 pounds. On Lasix 40 mg IV daily-- continue with diuresis. Continue strict I and O, daily weights, fluid restriction. Monitor kidney function closely. Qualifiers: Congestive heart failure type: systolic Congestive heart failure chronicity : acute Qualified Code(s): I50.21 - Acute systolic (congestive) heart failure (3) Chronic kidney disease, stage III (moderate) Current Visit: Yes Status: Chronic Per Cardiology: Past history of CKD stage IIIB, kidney function remains about baseline. Monitor closely with diuresis. Will monitor closely if proceeds with catheterization as well. Discussion w patient/family: The assessment and plan as outlined above was discussed with the patient and/or family members who expressed understanding and agreement. All questions were answered. Thank you for involving us in the care of your patient. Please call with any questions. Subjective Principal diagnosis: afib Interval history: Patient denies any chest pain. Reports short of breath and bilateral lower extremity swelling has improved. Reports now interest in [facility]. Objective Vital Signs, Last 4 Hours Temp Pulse Resp BP Pulse Ox 08/12/17 08:35 97.8 F 106 16 108/83 95 08/12/17 08:20 97.8 F 106 16 108/83 95 General: Conversant, No Apparent Distress HEENT: Atraumatic, Normocephaly, Mucus Membranes Moist Neck: No JVD, Normal carotid pulses Cardiac: Reg Rate and Rhythm, Normal S1 and S2, No Murmur Lungs: Normal Breath Sounds, No Wheeze, Rales, Rhonchi Neuro: Alert and responsive, No focal deficits noted Abdomen: Soft, Non-Tender Skin: No rashes noted on visualized skin Musculoskeletal: No Chest Wall Tenderness Extremities: No Clubbing, No Cyanosis, No Edema, Normal Pulses Results 08/11/17 05:37 08/12/17 02:47 Lab Results Laboratory Tests 08/12/17 02:47 Potassium 3.7 Creatinine 1.45 H Est GFR (Non-Af Amer) 35 L Intake & Output 08/09/17 08/10/17 08/11/17 08/12/17 23:59 23:59 23:59 23:59 Intake Total 300 / 300 530 / 530 1380 / 1380 500 / 500 Output Total 650 / 650 3150 / 3150 2100 / 2100 850 / 850 Balance -350 / -350 -2620 / -2620 -720 / -720 -350 / -350 Weight 85.7 kg 86.2 kg 85.4 kg Active Medications Acetaminophen (Tylenol) 650 mg PO Q6HR PRN PRN Reason: Mild Pain/Fever Stop: 02/08/18 18:05 Aspirin (Aspirin) 81 mg PO DAILY [facility] Stop: 02/08/18 18:16 Last Admin: 08/12/17 08:25 Dose: 81 mg Atorvastatin Calcium (Lipitor) 80 mg PO DAILY [facility] Stop: 02/09/18 09:01 Last Admin: 08/11/17 10:45 Dose: 80 mg Digoxin (Lanoxin) 0.25 mg IVP ONCE ONE Stop: 08/12/17 17:01 Furosemide (Lasix) 40 mg IVP DAILY [facility] Stop: 02/10/18 13:16 Last Admin: 08/12/17 08:25 Dose: 40 mg Heparin Sodium (Porcine) (Heparin) 6,000 unit 70 unit/kg (6000 unit) IVP Q6HR PRN PRN Reason: SEE COMMENTS Stop: 02/11/18 10:44 Heparin Sodium (Porcine) (Heparin) 3,000 unit 35 unit/kg (3000 unit) IVP Q6H PRN PRN Reason: SEE COMMENTS Stop: 02/11/18 10:44 Amiodarone HCl/Dextrose (Amiodarone Drip Premix 360mg/200ml) 360 mg in 200 mls @ 16.667 mls/hr IVC CONT [facility] PRN Reason: 0.5 MG/MIN Stop: 02/09/18 14:01 Last Admin: 08/11/17 19:58 Dose: 0.5 mg/min, 16.667 mls/hr Heparin Sodium/Dextrose (Heparin 25,000 Unit/500 Ml D5w) 25,000 unit in 500 mls @ 23.912 mls/hr IVC .[id number] CAROLE; 14 UNIT/KG/HR PRN Reason: Protocol Stop: 02/11/18 10:46 Metoprolol Succinate (Toprol Xl) 25 mg PO BID [facility] Stop: 02/10/18 21:01 Last Admin: 08/12/17 08:25 Dose: 25 mg Metoprolol Tartrate (Lopressor) 5 mg IVP Q6HR PRN PRN Reason: Tachycardia Stop: 02/08/18 19:08 Naloxone HCl (Narcan) 0.4 mg IVP Q2MIN PRN PRN Reason: SEE COMMENTS Stop: 02/08/18 18:05 Ondansetron HCl (Zofran) 4 mg IVP Q8HR PRN PRN Reason: Nausea And Vomiting Stop: 02/08/18 18:05 Oxycodone HCl (Oxycodone Oral Conc) 5 mg SL Q4H PRN; Protocol PRN Reason: mild to moderate pain Stop: 02/08/18 18:05 Potassium Chloride (Potassium Chloride) 20 meq PO DAILY [facility] Stop: 02/10/18 15:01 Last Admin: 08/12/17 08:25 Dose: 20 meq - Imaging and Cardiology Cardiac cath: pending - EKG Interpretation EKG results cardiology: other (Telemetry reviewed with average heart rate past 12 hours 1:15, currently A. fib in the 100s to 120s) - VTE Documentation of Mechanical Device: Intermittent pneumatic compression device Consult Discharge Plan - Plan Referrals: Jimmy Andrew MD [Primary Care Provider] - 08/18/17 3:30 am ()
[2017-08-12] MEDS: Heparin 25,000 UNIT/500 ML D5W 25,000 UNIT/500 ML BAG IVC SCH (11:30)
[2017-08-12] MEDS ORDERED: *HR* Digoxin 0.5 MG/2 ML AMPUL ONE (11:32)
[2017-08-12 11:34] LABS: Hematocrit 44.1 % (35.3-44.9); Hemoglobin 13.9 g/dL (11.5-15.4); Mean Corpuscular HGB Conc 31.5 g/dL (31.6-35.5); Mean Corpuscular Hemoglobin 28.1 pg (28.0-33.3); Mean Corpuscular Volume 89.3 fL (83.0-100.0); Mean Platelet Volume 11.2 fL (9.4-12.4); Platelet Count 300 K/mcL (140-400); Red Blood Count 4.94 M/mcL (3.82-4.97); Red Cell Distribution Width 14.5 % (11.5-14.5)
[2017-08-12 11:44] LABS: INR 1.5; Prothrombin Time 16.4 Seconds (9.4-12.1)
[2017-08-12 11:46] LABS: Activated Partial Thrombo Time 30.2 Seconds (26.0-36.0)
[2017-08-12 20:36] LABS: Activated Partial Thrombo Time 148.6 Seconds (26.0-36.0)
[2017-08-12 21:05] LABS: Heparin anti-factor XA UFH 1.48 IU/mL (0.30-0.70)
[2017-08-13 04:06] LABS: Calcium 8.4 mg/dL (8.6-10.3); Potassium 3.8 mEq/L (3.5-5.1)
[2017-08-13 04:14] LABS: Activated Partial Thrombo Time 132.8 Seconds (26.0-36.0)
[2017-08-13 04:26] LABS: Heparin anti-factor XA UFH 1.27 IU/mL (0.30-0.70)
[2017-08-13] MEDS: Heparin 25,000 UNIT/500 ML D5W 25,000 UNIT/500 ML BAG IVC SCH (06:20)
[2017-08-13] MEDS: Furosemide 40 MG/4 ML VIAL IVP SCH (07:40)
[2017-08-13] MEDS: Metoprolol XL (24 HR) Succ 25 MG TAB.ER.24H PO SCH ×2 (07:41→20:22)
[2017-08-13] MEDS: Aspirin 81 MG TAB.CHEW PO SCH (07:41)
--- NOTE | 2017-08-13 08:39 | Event Note ---
Date of Encounter: 08/13/17 Time of Encounter: 08:30 - Cardiology Event Note Laboratory Tests 08/13/17 03:13 Creatinine 1.41 H Est GFR (Non-Af Amer) 36 L Patient seen with sister at bedside and denies any chest pain, shortness of breath, palpitations. Remains agreeable to proceed with catheterization today. Kidney fxn around baseline. Net I&O - 4610ml. Heart rate noticed to be in the 90s. Will convert to PO amiodarone 200mg PO BID for 1 week, then 200mg PO daily; will consider addition of digoxin PO tomorrow if clinically warranted. Primary note reviewed, agree with plans for Coumadin for long-term AC. Patient remains agreeable to temporary hold DNR status for C. Discussed with Dr. Smith. Further recommendations after catheterization. Discussed with primary service. All questions answered.
[2017-08-13] MEDS ORDERED: *HR* Amiodarone 200 MG TABLET ONE (09:42)
[2017-08-13] MEDS: *HR* Amiodarone 200 MG TABLET PO SCH ×2 (09:45→20:23)
[2017-08-13 12:26] LABS: Activated Partial Thrombo Time 121.8 Seconds (26.0-36.0)
[2017-08-13 12:49] LABS: Heparin anti-factor XA UFH 1.16 IU/mL (0.30-0.70)
[2017-08-13] MEDS ORDERED: Nitroglycerin 1,000 MCG/10 ML VIAL IV ONE (13:01)
[2017-08-13] MEDS ORDERED: 0.9 % Sodium Chloride 1,000 ML ONE ×2 (13:01→14:20)
[2017-08-13] MEDS ORDERED: Heparin 1,000 UNITS/500 mL 500 ML ONE (13:01)
[2017-08-13] MEDS ORDERED: *HR* Heparin 10,000 UNIT/10 ML VIAL ONE (13:01)
[2017-08-13] MEDS ORDERED: ISOVUE-370 200 ML INFUS..BTL IV ONE (13:01)
[2017-08-13] MEDS ORDERED: *HR* FentaNYL (PF) 100 MCG/2 ML VIAL ONE (14:17)
[2017-08-13] MEDS ORDERED: *HR* Midazolam HCl 2 MG/2 ML VIAL ONE (14:17)
[2017-08-13] MEDS ORDERED: Verapamil 5 MG/2 ML VIAL ONE (14:18)
--- NOTE | 2017-08-13 14:43 | Pre-Sedation Evaluation ---
Pre-sedation evaluation - Pre-sedation checklist Date of procedure: 08/13/17 Procedure: [facility] Recent Vitals: Last Vital Signs Temp 98.2 F 08/13/17 12:30 Pulse 97 08/13/17 12:30 Resp 18 08/13/17 12:30 BP 105/94 08/13/17 12:30 Pulse Ox 94 08/13/17 12:30 H&P (including ROS) documented in medical record: Yes Previous reaction to sedatives/anesthetics: No Dietary Status: NPO after Midnight Dentition: No loose teeth or bridges ASA Classification *see protocol: CLASS II-Mild systemic disease Plan of Care: Pt appropriate candidate for procedure/moderate/conscious sedation , Risks/benefits of procedure/sedation discussed w/ patient/family
--- NOTE | 2017-08-13 15:24 | Invasive Diagnostic Lab Proc ---
Name: Ana Luisa Lipscomb Date of Study: 08/13/2017 Date: 1940 Ht: 64.0in Medical Record#: [id number] Age: 77 Wt: 189.38lb Gender: Female BSA: 1.91 Order #: [id number] BMI: 32.49 Physicians Procedure Physician: Gerardo Elise MD, [facility] Referring MD: Referring MD: Staff Name Position Time In Ángel Richardson RT (R) Scrub 02:16 PM Estefania Dawkins RT (R) Monitor 02:16 PM Rosalia Uribe RN Clinical Laboratory Aides Teacher 02:16 PM Indications Indication Unstable Angina Procedures Performed Procedure L HRT ARTERY/VENTRICLE ANGIO Pre-Procedure Checklist Informed consent is complete signed and on chart. H&P is on chart. ID band is on and ID verified with patient. Patient NPO for procedure The procedure was described for the patient and questions were answered. Blood Pressure: 122/90 ECG is on chart. Rhythm: Sinus Tachycardia Plan of Care Patient will tolerate the procedure without complications. Adequate level of comfort will be maintained. Hemodynamics will remain stable Patient will recover from procedure without complications. Respiratory function will be maintained. Cardiac rhythm will remain stable. Patient temperature will be maintained. Patient and/or family have verbalized understanding of the procedure. Patient Education Chief Complaint/Reason for Test: Cardiac Cath Developmental Category: Geriatric (65+ years) Developmentally Appropriate for Age: Yes Learning Barriers: None Education Needs: Procedure Education Method: Verbal Information Taught: Cardiac Cath Educational Evaluation: Able to repeat information Intravenous Access Time IV Size Location DC'd Fluid/Drip Rate Units RN 22g 1" Patent On Arrival Lt Wrist 22g 1" Patent On Arrival Lt Arm 0.9NaCl Allergies lisinopril Vital Signs Time BP (mmHg) HR (bpm) O2 Sat. RR (bpm) LOC 122 / 90 83 95 % 18 02:17 PM / % 5 = Fully awake and oriented or at pre-proc level 02:17 PM / % 5 = Fully awake and oriented or at pre-proc level 02:32 PM / % 5 = Fully awake and oriented or at pre-proc level 02:48 PM / % 5 = Fully awake and oriented or at pre-proc level 02:28 PM 148 / 92 108 96 % 21 02:33 PM 127 / 72 125 90 % 18 02:38 PM 120 / 67 117 92 % 12 02:43 PM 127 / 78 129 93 % 22 02:48 PM 126 / 72 120 97 % 20 02:53 PM 115 / 69 104 98 % 19 02:59 PM 112 / 79 83 94 % 15 03:03 PM 112 / 58 98 97 % 16 03:08 PM 120 / 76 90 94 % 17 Procedural Medications Time Medication Dose Units Method Given By 02:28 PM Versed 2 mg Intravenous Rosalia Uribe RN 02:28 PM Fentanyl 50 mcg Intravenous Rosalia Uribe RN 02:35 PM Oxygen 6 L/min nasal cannula Rosalia Uribe RN 02:37 PM Oxygen 6 L/min Oxy Mask Rosalia Uribe RN 02:38 PM Oxygen 10 L/min Oxy Mask Rsoalia Uribe RN 02:48 PM Lidocaine 2% 0.5 ml Subcutaneous Gerardo Elise MD, [facility] 02:54 PM Heparin 4000 units Nitroglycerin 200 mcg Verapamil 2.5 mg Intraarterial Gerardo Elise MD, [facility] ASA Classification: CLASS II- Mild systemic disease (i.e. well-controlled diabetes, hypertension, asthma, cigarette smoking) Serena Score Preprocedure Postprocedure Activity 2- Moves 4 extremities sustained head lift Activity 2- Moves 4 extremities sustained head lift Circulation 2- SBP +/= 20 points of pre-anesthetic level Circulation 2- SBP +/= 20 points of pre-anesthetic level Consciousness 2- Awake and alert oriented x 3 Consciousness 2- Awake and alert oriented x 3 O2 Saturation 2- Able to maintain O2 satruation of 92% on room air O2 Saturation 2- Able to maintain O2 satruation of 92% on room air Respiratory 2- Able to deep breathe and cough well Respiratory 2- Able to deep breathe and cough well Total Score 10 Total Score 10 Contrast Agent: Isovue Diagnostic Contrast: 27 ml Total Contrast: 27 ml Fluoro Dose: 187 mGy Procedure Log Time Note Enter By 01:17 PM CathStat 02:16 PM Pt arrived to warehouse general laborer 1 at 14:16 dspell 02:16 PM Ángel Richardson RT (R) Position: Scrub Time in: 14:16 dspellman 02:16 PM Estefania Dawkins RT (R) Position: Monitor Time in: 14:16 dspell 02:16 PM Rosalia Uribe RN Position: Clinical Laboratory Aides Teacher Time in: 14:16 dspell 02:16 PM Patient charges- Angio tray pack, Navilyst 3mm J, Pulse Oximetry and ACIST tubing and transducer : PM IV Supplies used: J loop Angio Cath. PM Case Delayed No PM Physician arrived 14: PM Meet and emily completed : PM Sign in performed according to hospital policy. PM Procedure start 14: PM Time: 14:17 Patient comfortable and pain free: Yes PM Time: 14:LOC: 5 = Fully awake and oriented or at pre-proc level PM Clinical Presentation: Unstable angina : PM Case Start 02: PM Vitals capture started with the following parameters, Patient=Adult, Interval=5 min, Initial Qbcwhgjt=507 mmHg, Deflation Rate=3 mmHg, Cuff placed on Right Arm 02: PM Hair removed from procedure site in holding area using clippers. Right wrist, right groin prepped with Chloraprep by Estefania Dawkins (R), then patient was draped. Skin intact. PM Time: 14:28 Versed 2 mg Intravenous Given by Rosalia Uribe RN PM Time: 14:28 Fentanyl 50 mcg Intravenous Given by Rosalia Uribe RN : PM XB=643 bpm, IQTA=621/92 mmhg, SpO2=96.0 %, Resp=21 B/min, Comment=a-fib : PM ASA Class CLASS II- Mild systemic disease (i.e. well-controlled diabetes, hypertension, asthma, cigarette smoking) :29 PM Recorded ECG: WP=218 Condition=Condition 1 02:32 PM Pressure channel 1 zeroed. 02:32 PM Time: 14:17LOC: 5 = Fully awake and oriented or at pre-proc level 32 PM Time: 14:17 Patient comfortable and pain free: Yes :33 PM AY=764 bpm, JRAE=610/72 mmhg, SpO2=90.0 %, Resp=18 B/min, Comment=a-fib 02:36 PM Time: 14:35 Oxygen on at 6 L/min per nasal cannula by Rosalia Uribe RN [facility] 02:37 PM Time: 14:37 Oxygen on at 6 L/min per Oxy Mask by Rosalia Uribe RN 02:38 PM SH=423 bpm, EHBI=547/67 mmhg, SpO2=92.0 %, Resp=12 B/min, Comment=a-fib 02:38 PM Time: 14:38 Oxygen on at 10 L/min per Oxy Mask by Rosalia Uribe RN 02:43 PM YK=055 bpm, QVGU=393/78 mmhg, SpO2=93.0 %, Resp=22 B/min, Comment=a-fib 02:47 PM Time: 14:32 Patient comfortable and pain free: Yes 48 PM Time: 14:32LOC: 5 = Fully awake and oriented or at pre-proc level dsp:48 PM GO=314 bpm, QVJG=702/72 mmhg, SpO2=97 %, Resp=20 B/min, Comment=a-fib :48 PM Time out performed according to hospital policy 48 PM Time: 14:48 0.5 ml Lidocaine 2% to right radial Subcutaneous Given by Gerardo Elise MD, FAC 02:53 PM HI=889 bpm, XXWE=526/69 mmhg, SpO2=98 %, Resp=19 B/min, Comment=a-fib 02:54 PM Access obtained by percutaneous puncture. 5Fr 10cm Terumo Glidesheath sheath placed in right Radial artery. [id number] :55 PM Time: 14:54 Patient given 4,000 units Heparin, 200 mcg Nitroglycerin, and 2.5 mg Verapamil Intraarterial by Gerardo Elise MD, FAC. This is given to reduce risk of vessel spasm and thrombosis. :55 PM 5Fr TIG catheter inserted over the wire [facility] :56 PM Catheter selectively placed in left ventricle dspell:56 PM pressures recorded in the LV dspell 02:56 PM Pressure channel 1 zero failed. 02:56 PM Pressure channel 1 zeroed. 02:56 PM Recorded Pressure: LV, Ao, JX=473, Condition=Condition 1 (Left Ventricle) LV 106/11/30, (Aorta) Ao ?/?/? 02:56 PM Recorded Pressure: LV, Ao, ZF=509, Condition=Condition 1 (Left Ventricle) LV 106/10/18, (Aorta) Ao 104/74/88 02:56 PM Recorded Pressure: Ao, HR=97, Condition=Condition 1 (Aorta) Ao 99/78/89 02:57 PM LCA angiography performed in multiple views. [email or web address] 02:58 PM RCA angiography performed in multiple views. dspellman 02:59 PM HR=83 bpm, NYQW=723/79 mmhg, SpO2=94 %, Resp=15 B/min, Comment=a-fib 02:59 PM Lesion found in Proximal LAD. Pre Stenosis: 15 Pre LEONOR Flow: 3: Complete and Brisk Flow/Perfusion dspellman 02:59 PM Lesion found in Proximal RCA. Pre Stenosis: 50 Pre LEONOR Flow: 3: Complete and Brisk Flow/Perfusion dspellman 02:59 PM Recorded Pressure: Ao, HR=96, Condition=Condition 1 (Aorta) Ao 82/49/64 03:01 PM Recorded Pressure: Ao, HR=88, Condition=Condition 1 (Aorta) Ao 74/55/63 03:01 PM Recorded Pressure: Ao, HR=98, Condition=Condition 1 (Aorta) Ao 95/75/85 03:03 PM HR=98 bpm, GDTZ=707/58 mmhg, SpO2=97 %, Resp=16 B/min, Comment=a-fib 03:03 PM Time: 14:48LOC: 5 = Fully awake and oriented or at pre-proc level dspellman 03:03 PM Time: 14:47 Patient comfortable and pain free: Yes dspellman 03:04 PM Catheter removed dspellman 03:04 PM Procedure completed at 15:04 dspellman 03:04 PM Did you address LEONOR flow and Dominance? Yes dspellman 03:04 PM Sign out completed: Radiation Dose 186.51 mGy Fluoro Time: 1.4 Isovue 370 - 200ml contrast 27 ml given by Gerardo Elise MD, [facility]. Complications: NoneCardiac Rehab Consult needed: NoConfirmed administered medications: Yes dspellman 03:05 PM Isovue 370 - 200ml,1 Bottle(s) used. dspellman 03:06 PM Arterial sheath pulled, Vasc Band closure device used and was Successful S/N. dspellman 03:06 PM 12 ml air in Vasc Band. dspell 03:06 PM Estimated Blood Loss: minimal dspell 03:06 PM Post ECG Atrial Fibrillation dspell 03:06 PM Post Blood Pressure 112/58 dspell 03:06 PM 15:06 Post Pulses Rt Radial 1+ dspell 03:06 PM Information taught Cardiac Cath and Vasc Band dspell 03:07 PM Education needs Procedure, Plan of Care, and Responsibilities of Patient in Care dspell 03:07 PM Learning barriers :None dspell 03:07 PM Education Methods Verbal dspell 03:07 PM Education evaluation Able to repeat information dspell 03:07 PM Site status No bleeding/hematoma - Rt Wrist as reported by Ángel Richardson RT (R) at 15:07 dspell 03:08 PM HR=90 bpm, BQNB=070/76 mmhg, SpO2=94.0 %, Resp=17 B/min, Comment=a-fib 03:09 PM Lesion found in Proximal RCA. Pre Stenosis: 70 Pre LEONOR Flow: 3: Complete and Brisk Flow/Perfusion dspell 03:10 PM Family placed in consult room. dspell 03:10 PM Complications: None dspell 03:10 PM Fluoro Time: 1.4 dspell 03:10 PM Isovue 370 - 200ml contrast 27 ml given by Gerardo Elise MD, [facility]. dspell 03:10 PM Radiation Dose 186.51 mGy dspell 03:13 PM Patient out of room: 15:13 dspellman 03:15 PM Report given to Wale MEEKS Pt taken to 2N Room #4. 15:14 dspellman 03:15 PM Patient out of room: 15:15 [email or web address] Complications Complication None None Hemodynamics Pressures Site Systolic/A Wave Diastolic/V Wave Mean LV 106 11 30 LV 106 10 18 AO 104 74 88 AO 99 78 89 AO AO 82 49 64 AO 74 55 63 AO 95 75 85 Post Procedure Information Blood Pressure: 112/58 mmHg Rhythm: Atrial Fibrillation Post procedural instructions were given Closure Device Time Device Success/Fail 08/13/2017 3:16:00 PM Mechanical Compression Successful Site Checks Time Location Status Staff Sheath In? Note 03:07 PM Rt Wrist No bleeding/hematoma Ángel Richardson RT (R) Pulses Time Site Pre-Procedure Post-Procedure Note Bilateral DP & PT 1+ Bilateral radial 2+ 3:06:00 PM Rt Radial 1+ Updated by Estefania Dawkins, RT (R) on 08/13/2017 3:17:56 PM Estefania Dawkins RT electronically signed on 08/13/2017 3:18:21 PM with status of Final
--- NOTE | 2017-08-13 15:55 | Internal Med Progress Note ---
<Yasemin Brewster - Last Filed: 08/13/17 15:53> Date of Encounter: 08/13/17 Time of Encounter: 15:53 - Assessment and plan (1) Atrial fibrillation with RVR Current Visit: Yes Status: Acute Assessment and plan: Recent diagnosis of afib, started on Xarelto by PCP is outpatient. Echo from 08/10/17 showed LVEF 20-30%, moderate mitral regurgitation, indeterminate diastolic function, normal right ventricular structure and function, mildly dilated left atrium. Plan: s/p C, report pending. start PO lasix possibly will start Digoxin tomorrow per cardio continue toprol XL, switched to amiodarone PO. per cardio: 200mg PO BID x1week, then 200mg PO daily thereafter. strict I/O, daily weights She is not a good candidate for xarelto due to age and CKD. will discontinue. switch to warfarin, first dose tonight. 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 Continue to monitor. Plan: set up with nephrology as outpatient. (5) Hypertension Current Visit: Yes Status: Acute Assessment and plan: was on amlodipine, on hold due to CHF Qualifiers: Hypertension type: essential hypertension Qualified Code(s): I10 - Essential (primary) hypertension (6) DVT prophylaxis Current Visit: Yes Status: Acute Assessment and plan: coumadin - Subjective Interval history: 62-year-old female evaluated at bedside. She returned from her cardiac catheterization earlier today. She denies nausea, vomiting, any pain. She denies any new problems. - Constitutional Vitals: Temp Pulse Resp BP Pulse Ox 98.2 F 97 18 105/94 94 08/13/17 12:30 08/13/17 12:30 08/13/17 12:30 08/13/17 12:30 08/13/17 12:30 General appearance: Present: A&O X 3, pleasant, no acute distress, answers questions appropriately - Head Head exam: Present: atraumatic, normocephalic - Neck Neck exam general surgery: Present: supple, trachea midline - Respiratory Respiratory exam: Present: CTAB - Cardiovascular Cardiovascular exam: Present: irregular rhythm, +S1, +S2 - GI/Abdominal GI/Abdominal exam: Present: normal bowel sounds, soft. Absent: distended, tenderness - Extremities Exam Extremities exam: Absent: cyanotic, pedal edema - Back Exam Back exam: Absent: CVA tenderness (L), CVA tenderness (R) - Neurological Exam Neurological exam: Present: alert, oriented X3, no focal deficits - Psychiatric Psychiatric exam: Present: normal affect, normal mood - Skin Skin exam: Present: intact Internal Medicine: Result - Labs CBC & Chem 7: 08/12/17 11:03 08/13/17 03:13 Labs: BMP 08/13/17 03:13 Sodium 142 Potassium 3.8 Chloride 109 H Carbon Dioxide 24 BUN 32 H Creatinine 1.41 H Glucose 150 H Calcium 8.4 L - ABG Interpretation ABG results: PT/INR, D-dimer PT 16.4 Seconds (9.4-12.1) H 08/12/17 11:03 - VTE Documentation of Mechanical Device: Intermittent pneumatic compression device Consult Discharge Plan - Plan Referrals: Jimmy Andrew MD [Primary Care Provider] - 08/18/17 3:30 am () <Berry Rodrigez - Last Filed: 08/13/17 17:50> Date of Encounter: 08/13/17 - Constitutional Vitals: Temp Pulse Resp BP Pulse Ox 98.0 F 94 18 124/73 92 08/13/17 16:30 08/13/17 16:38 08/13/17 16:38 08/13/17 16:38 08/13/17 16:38 Internal Medicine: Result - Labs CBC & Chem 7: 08/12/17 11:03 08/13/17 03:13 Labs: BMP 08/13/17 03:13 Sodium 142 Potassium 3.8 Chloride 109 H Carbon Dioxide 24 BUN 32 H Creatinine 1.41 H Glucose 150 H Calcium 8.4 L - ABG Interpretation ABG results: PT/INR, D-dimer PT 16.4 Seconds (9.4-12.1) H 08/12/17 11:03 - Attending Attestation I examined this patient and my medical decision-making was reviewed with the Resident Physician. I agree with the documented findings, disposition and treatment plan as described except to the extent set forth below. Heart catheter, via the right wrist, showed 170% lesion. Cardiology chooses to treat this medically. Hopefully we will hope to discharge tomorrow.
[2017-08-13] MEDS ORDERED: 0.9 % Sodium Chloride 1,000 ML IVC SCH (19:00)
[2017-08-13] MEDS ORDERED: *HR* Warfarin 7.5 MG TABLET PO ONE (20:00)
[2017-08-14 05:04] LABS: Calcium 8.8 mg/dL (8.6-10.3); Magnesium 1.8 mg/dL (1.6-2.6); Potassium 3.9 mEq/L (3.5-5.1)
[2017-08-14] MEDS: Furosemide 40 MG TABLET PO SCH (08:10)
[2017-08-14] MEDS: Metoprolol XL (24 HR) Succ 25 MG TAB.ER.24H PO SCH (08:11)
[2017-08-14] MEDS: *HR* Amiodarone 200 MG TABLET PO SCH ×2 (08:11→20:28)
[2017-08-14] MEDS: Aspirin 81 MG TAB.CHEW PO SCH (08:11)
--- NOTE | 2017-08-14 08:17 | Cardiology Progress Note ---
Date of Encounter: 08/14/17 Time of Encounter: 08:15 Assessment and Plan (1) Atrial fibrillation with RVR Current Visit: Yes Status: Acute Per Cardiology: Previously seen by cardiology Dr. Woodall September 2016 with cryptogenic stroke. At that point loop recorder discussed, however patient declined. Appears to possibly have history of atrial fibrillation and started on anticoagulation by PCP of [facility]. Continues A. fib with RVR in the 110s to 130s. On Toprol-XL 25 mg by mouth twice a day, SBP 110-120's. Now on amio 200mg PO BID for 1 week then 200mg PO daily (IV gtt off). On Toprol XL 25mg PO BID-- will increase to 50mg PO BID. Received IV Digoxin 0.75 total load. Will start Digoxin 0.125mg PO QOD as discussed with Dr. Smith. Will discuss with Dr. Onel Hilario (EP). We will continue with attempts at rate control. Regarding long-term anticoagulation, s/p LHC: Showed proximal LAD 15%, proximal RCA 50%, ostial RCA 70%-- recommendations for medical management (re-evaluate EF in outpatient setting once HR controlled and meds optimized). Plans to start coumadin by primary service. Target INR 2.0-3.0. Monitor closely with amio. Recommend consult physical therapy and social media marketing specialist for evaluation for potential for rehabilitation. (2) CHF (congestive heart failure), NYHA class III Current Visit: Yes Status: Acute Per Cardiology: EF on echo 20-30%. According to records patient's net - 7377ml. Clinically improved. Reports baseline weight 168 pounds. On Lasix 40 mg PO daily-- continue with diuresis. Continue strict I and O, daily weights, fluid restriction. Monitor kidney function closely (now improved). Qualifiers: Congestive heart failure type: systolic Congestive heart failure chronicity : acute Qualified Code(s): I50.21 - Acute systolic (congestive) heart failure (3) CAD (coronary artery disease) Current Visit: Yes Status: Acute Per Cardiology: S/p LHC-- as above. On aspirin, statin, beta sammy. He has allergy to KYLE inhibitor. Can consider addition of ARB if kidney function allows, will hold for now to allow for beta sammy titration for A. fib. Qualifiers: Coronary Disease-Associated Artery/Lesion type: [place] artery [place] vs. transplanted heart: [place] heart Associated angina: without angina Qualified Code(s): I25.10 - Atherosclerotic heart disease of [place] coronary artery without angina pectoris (4) Chronic kidney disease, stage III (moderate) Current Visit: Yes Status: Deleted Per Cardiology: Past history of CKD stage IIIB, improved. Monitor closely with diuresis. Discussion w patient/family: The assessment and plan as outlined above was discussed with the patient and/or family members who expressed understanding and agreement. All questions were answered. Thank you for involving us in the care of your patient. Please call with any questions. Subjective Principal diagnosis: afib Interval history: Denies any chest pain, shortness of breath, palpitations. Denies any concerns from her right wrist site. Objective Vital Signs, Last 4 Hours Temp Pulse Resp BP Pulse Ox 08/14/17 06:57 98.0 F 110 18 122/68 94 08/14/17 04:40 97.6 F 90 21 109/71 94 General: Conversant, No Apparent Distress HEENT: Atraumatic, Normocephaly, Mucus Membranes Moist Neck: No JVD, Normal carotid pulses Cardiac: Reg Rate and Rhythm, Normal S1 and S2, No Murmur Lungs: Normal Breath Sounds, No Wheeze, Rales, Rhonchi Neuro: Alert and responsive, No focal deficits noted Abdomen: Soft, Non-Tender Skin: No rashes noted on visualized skin, Other (Right wrist site dry and intact , no hematoma, no bleeding, right radial pulse 2+ palpable) Musculoskeletal: No Chest Wall Tenderness Extremities: No Clubbing, No Cyanosis, No Edema, Normal Pulses Results 08/12/17 11:03 08/14/17 04:00 Lab Results Laboratory Tests 08/14/17 04:00 Creatinine 1.18 Est GFR (Non-Af Amer) 45 L Magnesium 1.8 ITS Impressions Chest X-Ray 08/10/17 06:00 IMPRESSION: Improved aeration of the lung bases. There is decreased pleural-parenchymal disease at the lung bases D/ / Shad Klein MD / Shad Klein MD Interpreting Provider: Shad Klein MD Echocardiogram 08/10/17 18:09 Impressions: LVEF 20-30%. Moderate Mitral Regurge (central Jet) Indeterminate diastolic function. Normal right ventricular structure and function. Mildly dilated left atrium. Estimated RA pressure is 20 mmHg. Left Ventricular Wall Motion: Rest Echo Findings The apex, apical inferior, mid inferior, basal inferior, apical anterior, mid anterior, basal anterior, apical septal, mid inferior septal, basal inferior septal, apical lateral, mid anterior lateral, basal anterior lateral, mid anterior septal, mid inferior lateral, basal anterior septal and basal inferior lateral reyna were hypokinetic. Findings: Study Quality * Technically adequate exam. ECG Findings * Atrial fibrillation. Left Ventricle * LVEF 20-30%. * Severe global left ventricular systolic dysfunction. * Indeterminate diastolic function. Right Ventricle * Normal right ventricular structure and function. Left Atrium * Mildly dilated left atrium. Right Atrium * Normal right atrial size. Interatrial Septum * No evidence of PFO by color Doppler. Aortic Valve * Trileaflet aortic valve. * Trileaflet aortic valve with normal function. Tricuspid Valve * Mild tricuspid regurgitation. * Estimated RVSP is 29 mmHg. * Estimated RA pressure is 20 mmHg. * Mild pulmonary hypertension. Pulmonic Valve * Pulmonic valve not well visualized. Aorta * Normally sized aortic root. Pericardium * The pericardium appears normal. IVC * The IVC is dilated. * IVC plethora is noted ADDENDUM: 08/10/17 1210 Impressions: LVEF 20-30%. Moderate Mitral Regurge (central Jet) Indeterminate diastolic function. Normal right ventricular structure and function. Mildly dilated left atrium. Estimated RA pressure is 20 mmHg. Left Ventricular Wall Motion: Rest Echo Findings The apex, apical inferior, mid inferior, basal inferior, apical anterior, mid anterior, basal anterior, apical septal, mid inferior septal, basal inferior septal, apical lateral, mid anterior lateral, basal anterior lateral, mid anterior septal, mid inferior lateral, basal anterior septal and basal inferior lateral reyna were hypokinetic. Findings: Study Quality * Technically adequate exam. ECG Findings * Atrial fibrillation. Left Ventricle * LVEF 20-30%. * Severe global left ventricular systolic dysfunction. * Indeterminate diastolic function. Right Ventricle * Normal right ventricular structure and function. Left Atrium * Mildly dilated left atrium. Right Atrium * Normal right atrial size. Interatrial Septum * No evidence of PFO by color Doppler. Aortic Valve * Trileaflet aortic valve. * Trileaflet aortic valve with normal function. Tricuspid Valve * Mild tricuspid regurgitation. * Estimated RVSP is 29 mmHg. * Estimated RA pressure is 20 mmHg. * Mild pulmonary hypertension. Pulmonic Valve * Pulmonic valve not well visualized. Aorta * Normally sized aortic root. Pericardium * The pericardium appears normal. IVC * The IVC is dilated. * IVC plethora is noted Active Medications Acetaminophen (Tylenol) 650 mg PO Q6HR PRN PRN Reason: Mild Pain/Fever Stop: 02/08/18 18:05 Amiodarone HCl (Cordarone) 200 mg PO BID CAROLE Stop: 02/12/18 09:01 Last Admin: 08/14/17 08:11 Dose: 200 mg Aspirin (Aspirin) 81 mg PO DAILY [facility] Stop: 02/08/18 18:16 Last Admin: 08/14/17 08:11 Dose: 81 mg Atorvastatin Calcium (Lipitor) 80 mg PO DAILY [facility] Stop: 02/09/18 09:01 Last Admin: 08/14/17 08:11 Dose: 80 mg Furosemide (Lasix) 40 mg PO DAILY [facility] Stop: 02/13/18 09:01 Last Admin: 08/14/17 08:10 Dose: 40 mg Sodium Chloride (0.9 % Sodium Chloride) 1,000 mls @ 25 mls/hr IVC .Q24H [facility] Stop: 08/15/17 10:59 Last Admin: 08/13/17 20:22 Dose: 25 mls/hr Metoprolol Succinate (Toprol Xl) 25 mg PO BID [facility] Stop: 02/10/18 21:01 Last Admin: 08/14/17 08:11 Dose: 25 mg Metoprolol Tartrate (Lopressor) 5 mg IVP Q6HR PRN PRN Reason: Tachycardia Stop: 02/08/18 19:08 Naloxone HCl (Narcan) 0.4 mg IVP Q2MIN PRN PRN Reason: SEE COMMENTS Stop: 02/08/18 18:05 Ondansetron HCl (Zofran) 4 mg IVP Q8HR PRN PRN Reason: Nausea And Vomiting Stop: 02/08/18 18:05 Oxycodone HCl (Oxycodone Oral Conc) 5 mg SL Q4H PRN; Protocol PRN Reason: mild to moderate pain Stop: 02/08/18 18:05 Potassium Chloride (Potassium Chloride) 20 meq PO DAILY [facility] Stop: 02/10/18 15:01 Last Admin: 08/14/17 08:11 Dose: 20 meq - Imaging and Cardiology Cardiac cath: report reviewed - EKG Interpretation EKG results cardiology: other (Tele shows avg HR 105 past 12 hrs, currently afib 110's - 130's) - VTE Documentation of Mechanical Device: Intermittent pneumatic compression device Consult Discharge Plan - Plan Referrals: Coumadin,Clinic [Other] - 08/19/17 3:00 pm ([facility] right. The first visit is 1 hour long. Take list of medication with you including over the counter meds. Take your Bottle of Warfin with you to the appointment) Jimmy Andrew MD [Primary Care Provider] - 08/18/17 3:30 am ()
--- NOTE | 2017-08-14 09:01 | Discharge Summary ---
<Yasemin Brewster - Last Filed: 08/15/17 17:23> Orders not resulted at time of discharge: Pending orders 08/13/17 10:45 CL Cardiac Catheterization [CL] Routine Date of Encounter: 08/15/17 Time of Encounter: 08:56 - Discharge Diagnosis (1) Atrial fibrillation with RVR Priority: Primary Status: Acute (2) Acute diastolic heart failure Priority: Secondary Status: Acute (3) CHF (congestive heart failure), NYHA class III Priority: Secondary Status: Acute Qualifiers: Congestive heart failure type: systolic Congestive heart failure chronicity : acute Qualified Code(s): I50.21 - Acute systolic (congestive) heart failure (4) Chronic kidney disease, stage III (moderate) Priority: Secondary Status: Deleted (5) Hypertension Priority: Secondary Status: Acute Qualifiers: Hypertension type: essential hypertension Qualified Code(s): I10 - Essential (primary) hypertension (6) DVT prophylaxis Priority: Secondary Status: Acute Hospital course: Ms. Lipscomb is a 77 year old female with PMHx of HTN, DM, CKD, atrial fibrillation, CVA, HLD. Patient arrived to the hospital on 08/09/17 as a transfer from an outside hospital. She arrived with chief complaint of shortness of breath and was found to be in atrial fibrillation with rapid ventricular response. Patient was admitted for further workup and treatment. She was virtually started on Cardizem GTT and heparin GTT. Chest x-ray showed signs of pulmonary edema. Consult to cardiology was made. Patient was treated for acute CHF, and was diuresed. Echocardiogram showed LVEF 20-30%, moderate mitral regurgitation, indeterminate diastolic function, normal right ventricular structure and function, mildly dilated left atrium, estimated are a pressure 20mm Hg. per cardiology, it was recommended that patient received an ischemic evaluation via [facility], which showed proximal LAD 15%, proximal RCA 50%, ostial RCA 70%-- there was no intervention and recommendation was for medical management. Her hospitalization, patient heart rate was very difficult to control. She was transitioned from amiodarone GTT to PO amiodarone. Her beta sammy dose was also titrated up and patient was started on digoxin. On day of discharge, patient's heart rate was still uncontrolled. Cardiology recommended a TET with cardioversion. However, patient adamantly refused this procedure. The dose of her beta sammy was up titrated further, and cardiology signed off with recommendations for medical management with follow- up as outpatient. Patient recently was started on Xarelto by her PCP as outpatient. However, because of her age and history of CKD, this is likely not the best choice for anticoagulation for her. She was started on warfarin while in the hospital. She has outpatient follow-up appointments with her primary care provider, Coumadin clinic, cardiology. Recommend outpatient establishment with nephrology for her CKD. Will defer this to her PCP. He heart rate was better controlled after medications were titrated, and she was discharged home in stable condition. Patient did change her mind about receiving NICOLAS with cardioversion, but this can be done as an outpatient with cardiology. Discharge discussed with: patient, family - Time Spent with Patient Total time spent providing and/or coordinating discharge services: Greater than 30 minutes (35) - Discharge Medications Prescriptions: Amiodarone [Cordarone] 200 mg PO AD #35 tablet Digoxin [Lanoxin] 0.125 mg PO QOD #30 tablet Metoprolol XL (24 HR) Succ [Toprol Xl] 100 mg PO BID 30 Days tab.er.24h Warfarin [Coumadin] 2.5 mg PO 1800 #30 tablet Home Medications: Calc/D3/Mag/Zn/Reed/Aris/Beeler [Calcium 600 mg Plus Vit D Tab] 1 tab PO DAILY [History] Multivitamin [Multi-Day Vitamins] 1 tab PO DAILY 06/29/16 [History] [place]-3 Fatty Acids [Fish Oil] 300 mg PO DAILY 06/29/16 [History] Vit C/Vit E AC/Lut/Copper/Zinc [Preservision Lutein Softgel] 1 cap PO DAILY [History] Atorvastatin Calcium 80 mg PO DAILY 02/05/17 [History] Aspirin 81 mg PO DAILY 08/09/17 [History] Furosemide [Lasix] 40 mg PO DAILY 08/09/17 [History] Potassium Chloride [Klor-Con 10] 20 meq PO DAILY 08/09/17 [History] Amlodipine Besylate 10 mg PO DAILY 08/10/17 [History] Amiodarone [Cordarone] 200 mg PO AD #35 tablet 08/15/17 [Rx] Digoxin [Lanoxin] 0.125 mg PO QOD #30 tablet 08/15/17 [Rx] Metoprolol XL (24 HR) Succ [Toprol Xl] 100 mg PO BID 30 Days tab.er.24h [Rx] Warfarin [Coumadin] 2.5 mg PO 1800 #30 tablet 08/15/17 [Rx] Allergies/Adverse Reactions: 3 Allergy/AdvReac Type Severity Reaction Status Date / Time lisinopril Allergy Swelling Verified 08/09/17 12:55 of Lip/Tongue/Throat Date of admission: 08/09/17 17:32 Primary care physician: Jimmy Andrew MD Consults: 08/09/17 18:08 Consult to Physician [CONS] Routine Consulting Provider: Ned Woodall Reason for Consult: A. fib with RVR, acute heart failure Call Completed: No 08/09/17 18:09 Consult to [employer] [CONS] Routine Reason for SW Consult: possible home servies needed at discharge, pt lives at home alone 08/14/17 08:06 Consult to Physical Therapy [CONS] Routine Comment: Evaluate, develop and implement POC Reason for Consult: weakness OT [Consult to Occupational Therapy] [CONS] Routine Comment: Evaluate, develop and implement POC Reason for Consult: weakness Discharging clinician: Yasemin Brewster Anticipated date of discharge: 08/15/17 - Constitutional Vitals: Temp Pulse Resp BP Pulse Ox 98.0 F 110 18 122/68 94 08/14/17 08:00 08/14/17 08:00 08/14/17 08:00 08/14/17 08:00 08/14/17 08:00 General appearance: Present: A&O X 3, pleasant, no acute distress, answers questions appropriately - Head Head exam: Present: atraumatic, normocephalic - Neck Neck exam general surgery: Present: supple, trachea midline - Respiratory Respiratory exam: Present: CTAB - Cardiovascular Cardiovascular exam: Present: RRR, +S1, +S2 - GI/Abdominal GI/Abdominal exam: Present: normal bowel sounds, soft. Absent: distended, tenderness - Extremities Exam Extremities exam: Absent: cyanotic, pedal edema - Neurological Exam Neurological exam: Present: alert, oriented X3, no focal deficits - Psychiatric Psychiatric exam: Present: normal affect, normal mood - Skin Skin exam: Present: intact - Patient Status Disposition: Home, Self-Care Condition: Fair Functional capacity at discharge: independent ambulation Overall status at discharge: patient is progressing back to baseline - Discharge Instructions Follow Up With: Coumadin,Clinic [Other] - 08/18/17 4:45 pm ([facility] right. The first visit is 1 hour long. Take list of medication with you including over the counter meds. Take your Bottle of Warfin with you to the appointment) Jimmy Andrew MD [Primary Care Provider] - 08/22/17 11:30 am () Onel Hilario MD [Partnered Physician] - Additional Instructions: stop Xarelto. follow up with your primary care provider within one week of discharge follow up with cardiology and coumadin clinic please take amiodarone, digoxin, coumadin, metoprolol XL as prescribed. please take amiodarone twice a day for four more days then once a day thereafter. return to emergency department if you develop chest pain, shortness of breath, palpitations. - Diet and Activity Activity: increase activity as tolerated Diet: low fat, low cholesterol - VTE Documentation of Mechanical Device: Intermittent pneumatic compression device <Berry oRdrigez - Last Filed: 08/15/17 18:46> Date of Encounter: 08/15/17 Hospital course: Ms. Lipscomb is a 77 year old female - Time Spent with Patient Total time spent providing and/or coordinating discharge services: Date of admission: 08/09/17 17:32 Primary care physician: Jimmy Andrew MD Consults: 08/09/17 18:08 Consult to Physician [CONS] Routine Consulting Provider: Ned Woodall Reason for Consult: A. fib with RVR, acute heart failure Call Completed: No 08/09/17 18:09 Consult to [employer] [CONS] Routine Reason for SW Consult: possible home servies needed at discharge, pt lives at home alone - Constitutional Vitals: Temp Pulse Resp BP Pulse Ox 97.9 F 96 18 109/80 96 08/15/17 15:27 08/15/17 15:27 08/15/17 15:27 08/15/17 15:27 08/15/17 15:27 - Attending Attestation I examined this patient and my medical decision-making was reviewed with the Resident Physician. I agree with the documented findings, disposition and treatment plan as described except to the extent set forth below.
--- NOTE | 2017-08-14 09:25 | Internal Med Progress Note ---
<SalasusAsiaabimbola - Last Filed: 08/14/17 09:23> Date of Encounter: 08/14/17 Time of Encounter: 09:23 - Assessment and plan (1) Atrial fibrillation with RVR Current Visit: Yes Status: Acute Assessment and plan: Recent diagnosis of afib, started on Xarelto by PCP is outpatient. Echo from 08/10/17 showed LVEF 20-30%, moderate mitral regurgitation, indeterminate diastolic function, normal right ventricular structure and function, mildly dilated left atrium. s/p LHC on 08/13/17. No intervention. Plan: PO lasix digoxin .125 QOD, Toprol XL per cardio amiodarone PO. per cardio: 200mg PO BID x1week, then 200mg PO daily thereafter. strict I/O, daily weights continue dosing coumadin. setting up with coumadin clinic. PT/OT evaluation. discharge tomorrow if ok with cardio and if HR better controlled. (2) Acute diastolic heart failure Current Visit: Yes Status: Acute Assessment and plan: Plan as above (3) CHF (congestive heart failure), NYHA class III Current Visit: Yes Status: Acute Assessment and plan: Plan as above Qualifiers: Congestive heart failure type: systolic Congestive heart failure chronicity : acute Qualified Code(s): I50.21 - Acute systolic (congestive) heart failure (4) Hypertension Current Visit: Yes Status: Acute Assessment and plan: was on amlodipine, on hold due to CHF Qualifiers: Hypertension type: essential hypertension Qualified Code(s): I10 - Essential (primary) hypertension (5) CKD (chronic kidney disease) Current Visit: Yes Status: Acute Assessment and plan: CKD stage III. renal function back to normal today. Plan: set up with nephrology as outpatient. Qualifiers: Chronic kidney disease stage: unspecified stage Qualified Code(s): N18.9 - Chronic kidney disease, unspecified (6) DVT prophylaxis Current Visit: Yes Status: Acute Assessment and plan: continue coumadin - Subjective Interval history: 62-year-old female evaluated at bedside. Patient denies nausea, vomiting, diarrhea, fever, chills, chest pain, shortness of breath. - Constitutional Vitals: Temp Pulse Resp BP Pulse Ox 98.0 F 110 18 122/68 94 08/14/17 08:00 08/14/17 08:00 08/14/17 08:00 08/14/17 08:00 08/14/17 08:00 General appearance: Present: A&O X 3, pleasant, no acute distress, answers questions appropriately - Head Head exam: Present: atraumatic, normocephalic - Neck Neck exam general surgery: Present: supple, trachea midline - Respiratory Respiratory exam: Present: CTAB - Cardiovascular Cardiovascular exam: Present: irregular rhythm, tachycardia - GI/Abdominal GI/Abdominal exam: Present: distended, normal bowel sounds, soft. Absent: tenderness - Extremities Exam Extremities exam: Absent: cyanotic, pedal edema - Neurological Exam Neurological exam: Present: alert, oriented X3, no focal deficits - Psychiatric Psychiatric exam: Present: normal affect, normal mood - Skin Skin exam: Present: intact Internal Medicine: Result - Labs CBC & Chem 7: 08/12/17 11:03 08/14/17 04:00 Labs: BMP 08/14/17 04:00 Sodium 142 Potassium 3.9 Chloride 108 H Carbon Dioxide 27 BUN 21 Creatinine 1.18 Glucose 115 H Calcium 8.8 - ABG Interpretation ABG results: PT/INR, D-dimer PT 16.4 Seconds (9.4-12.1) H 08/12/17 11:03 - VTE Documentation of Mechanical Device: Intermittent pneumatic compression device Consult Discharge Plan - Plan Referrals: Coumadin,Clinic [Other] - 08/18/17 4:45 pm (Go to red light at [facility] turn left then the first right. The first visit is 1 hour long. Take list of medication with you including over the counter meds. Take your Bottle of Warfin with you to the appointment) Jimmy Andrew MD [Primary Care Provider] - 08/22/17 11:30 am () <Berry Rodrigez - Last Filed: 08/14/17 18:49> Date of Encounter: 08/14/17 - Constitutional Vitals: Temp Pulse Resp BP Pulse Ox 97.8 F 132 20 123/79 94 08/14/17 18:43 08/14/17 18:43 08/14/17 18:43 08/14/17 18:43 08/14/17 18:43 Internal Medicine: Result - Labs CBC & Chem 7: 08/14/17 15:55 08/14/17 04:00 Labs: Short CBC 08/14/17 Range/Units 15:55 WBC 11.1 (4.3-11.1) K/mcL Hgb 13.6 (11.5-15.4) g/dL Hct 42.1 (35.3-44.9) % Plt Count 281 (140-400) K/mcL BMP 08/14/17 04:00 Sodium 142 Potassium 3.9 Chloride 108 H Carbon Dioxide 27 BUN 21 Creatinine 1.18 Glucose 115 H Calcium 8.8 - ABG Interpretation ABG results: PT/INR, D-dimer PT 14.3 Seconds (9.4-12.1) H 08/14/17 15:55 - Attending Attestation I examined this patient and my medical decision-making was reviewed with the Resident Physician. I agree with the documented findings, disposition and treatment plan as described except to the extent set forth below.
[2017-08-14] MEDS: *HR* Digoxin 0.125 MG TABLET PO SCH ×2 (11:24→14:33)
[2017-08-14] MEDS ORDERED: *HR* Heparin 5,000 UNIT/ML VIAL IVP ONE (15:09)
[2017-08-14] MEDS ORDERED: *HR* Heparin 5,000 UNIT/ML VIAL IVP PRN ×2 (15:09)
--- NOTE | 2017-08-14 15:13 | Event Note ---
Date of Encounter: 08/14/17 Time of Encounter: 15:00 - Cardiology Event Note Discussed with Dr. Onel Hilario, will make NPO for possible NICOLAS/DCCV tomorrow if needed and patient agreeable. HR remains 100's - 130's. SBP remains 110s to 120s. We will continue to titrate beta sammy. Will resume heparin drip until INR therapeutic since on amiodarone and may undergo cardioversion.
[2017-08-14 16:17] LABS: Hematocrit 42.1 % (35.3-44.9); Hemoglobin 13.6 g/dL (11.5-15.4); Mean Corpuscular HGB Conc 32.3 g/dL (31.6-35.5); Mean Corpuscular Hemoglobin 28.6 pg (28.0-33.3); Mean Corpuscular Volume 88.6 fL (83.0-100.0); Mean Platelet Volume 11.1 fL (9.4-12.4); Platelet Count 281 K/mcL (140-400); Red Blood Count 4.75 M/mcL (3.82-4.97)
[2017-08-14 16:26] LABS: INR 1.3; Prothrombin Time 14.3 Seconds (9.4-12.1)
[2017-08-14] MEDS: Heparin 25,000 UNIT/500 ML D5W 25,000 UNIT/500 ML BAG IVC SCH (16:30)
[2017-08-14 16:31] LABS: Activated Partial Thrombo Time 26.8 Seconds (26.0-36.0)
[2017-08-14] MEDS ORDERED: *HR* Warfarin 5 MG TABLET PO ONE (18:00)
[2017-08-14] MEDS: Metoprolol XL (24 HR) Succ 50 MG TAB.ER.24H PO SCH (20:28)
[2017-08-14] MEDS ORDERED: Metoprolol XL (24 HR) Succ 50 MG TAB.ER.24H PO SCH (21:00)
[2017-08-14 23:43] LABS: Activated Partial Thrombo Time 253.7 Seconds (26.0-36.0); Heparin anti-factor XA UFH 1.36 IU/mL (0.30-0.70)
[2017-08-15 06:11] LABS: INR 1.9; Prothrombin Time 20.6 Seconds (9.4-12.1)
[2017-08-15 06:16] LABS: Calcium 8.6 mg/dL (8.6-10.3)
[2017-08-15 06:30] LABS: Activated Partial Thrombo Time 144.3 Seconds (26.0-36.0)
[2017-08-15 06:37] LABS: Heparin anti-factor XA UFH 0.96 IU/mL (0.30-0.70)
[2017-08-15] MEDS: Metoprolol XL (24 HR) Succ 50 MG TAB.ER.24H PO SCH (07:39)
[2017-08-15] MEDS: Aspirin 81 MG TAB.CHEW PO SCH (07:39)
[2017-08-15] MEDS: *HR* Amiodarone 200 MG TABLET PO SCH (07:39)
[2017-08-15] MEDS: Furosemide 40 MG TABLET PO SCH (07:39)
[2017-08-15] MEDS ORDERED: Metoprolol XL (24 HR) Succ 25 MG TAB.ER.24H PO ONE (09:30)
--- NOTE | 2017-08-15 09:32 | Cardiology Progress Note ---
Date of Encounter: 08/15/17 Time of Encounter: 09:00 Assessment and Plan (1) Atrial fibrillation with RVR Current Visit: Yes Status: Acute Per Cardiology: -A.fib RVR. -Average HR previous 12 hours noted to be 104, a.fib. -On amio 200mg BID for one week, then 200mg daily, on dig 0.125mg QOD, and toprol 75mg BID. -PLan was for NICOLAS/DCCV today. However patient adamently refuses. Patient states she just wants to and does not want any further procedures/testing. -Regarding long-term anticoagulation, s/p LHC: Showed proximal LAD 15%, proximal RCA 50%, ostial RCA 70%-- recommendations for medical management (re- evaluate EF in outpatient setting once HR controlled and meds optimized). Started on coumadin by primary service. -Target INR 2.0-3.0. -INR today 1.9, would recommend patient therapeutic with coumadin prior to discharge due to history of CVA. -Will increase beta sammy for better rate control. Recommend titrating as BP will tolerate and for average HR less than 100. -Amiodaorne 200mg BID for one week then 200mg daily. -recommend patient therapeutic with coumadin prior to discharge due to history of CVA. -Consider palliative care consult as patient is refusing further procedures/ testing. -Cardiology will sign off and will follow in outpatient setting. Follow up set. (2) CHF (congestive heart failure), NYHA class III Current Visit: Yes Status: Acute Per Cardiology: -EF on echo 20-30%. -Clinically improved, mild pedal edema noted. -On Lasix 40 mg PO daily. - Continue strict I and O, daily weights, fluid restriction. -Currently net negative 7200ml. -on room air. -On beta sammy. Allergy to vitor noted. -Consider addition of ARB prior to discharge if BP and renal function will allow. Qualifiers: Congestive heart failure type: systolic Congestive heart failure chronicity : acute Qualified Code(s): I50.21 - Acute systolic (congestive) heart failure (3) CAD (coronary artery disease) Current Visit: Yes Status: Acute Per Cardiology: -S/p LHC with 15% proximal LAD, 70% ostial RCA, 50% mid RCA. Ostial RCA lesion was not felt to be cause of cardiomyopathy. -Patient without angina symptoms. Can consider PCI of RCA if patient has angina symptoms. -Pateint now refusing further testing/intervention. - On aspirin, statin, beta sammy. -Will sign off and follow in outpatient setting. Qualifiers: Coronary Disease-Associated Artery/Lesion type: [place] artery [place] vs. transplanted heart: [place] heart Associated angina: without angina Qualified Code(s): I25.10 - Atherosclerotic heart disease of [place] coronary artery without angina pectoris (4) CKD (chronic kidney disease) Current Visit: Yes Status: Acute Per cardiology: -Renal function improved. -Management per primary service. Qualifiers: Chronic kidney disease stage: unspecified stage Qualified Code(s): N18.9 - Chronic kidney disease, unspecified Discussion w patient/family: The assessment and plan as outlined above was discussed with the patient who expressed understanding and agreement. All questions were answered. Thank you for involving us in the care of your patient. Please call with any questions. Discussed and reviewed with Dr.John Hilario. Patient seen and examined with at bedside. Subjective Principal diagnosis: afib Interval history: Patient refusing NICOLAS/DCCV today. Denies complaints. Patient reports she does not want anything done and just wants to . Objective Vital Signs, Last 4 Hours Temp Pulse Resp BP Pulse Ox 08/15/17 07:51 112 08/15/17 07:14 98.5 F 118 19 115/92 93 General: Conversant, No Apparent Distress HEENT: Atraumatic, Normocephaly, Mucus Membranes Moist Neck: No JVD, Normal carotid pulses Cardiac: Normal S1 and S2, No Murmur, Other (Irregularly irregular) Lungs: Normal Breath Sounds, No Wheeze, Rales, Rhonchi Neuro: Alert and responsive, No focal deficits noted Abdomen: Soft, Non-Tender Skin: No rashes noted on visualized skin Musculoskeletal: No Chest Wall Tenderness Extremities: No Clubbing, No Cyanosis, Normal Pulses, Other (Mild bilateral pedal edema noted. ) Results 08/14/17 15:55 08/15/17 05:41 Lab Results Active Medications Acetaminophen (Tylenol) 650 mg PO Q6HR PRN PRN Reason: Mild Pain/Fever Stop: 02/08/18 18:05 Amiodarone HCl (Cordarone) 200 mg PO BID [facility] Stop: 02/12/18 09:01 Last Admin: 08/15/17 07:39 Dose: 200 mg Aspirin (Aspirin) 81 mg PO DAILY [facility] Stop: 02/08/18 18:16 Last Admin: 08/15/17 07:39 Dose: 81 mg Atorvastatin Calcium (Lipitor) 80 mg PO DAILY [facility] Stop: 02/09/18 09:01 Last Admin: 08/15/17 07:39 Dose: 80 mg Digoxin (Lanoxin) 0.125 mg PO QOD [facility] Stop: 02/13/18 08:31 Last Admin: 08/14/17 14:33 Dose: Not Given Furosemide (Lasix) 40 mg PO DAILY [facility] Stop: 02/13/18 09:01 Last Admin: 08/15/17 07:39 Dose: 40 mg Heparin Sodium (Porcine) (Heparin) 5,900 unit 70 unit/kg (5900 unit) IVP Q6HR PRN PRN Reason: SEE COMMENTS Stop: 02/13/18 15:10 Heparin Sodium (Porcine) (Heparin) 3,000 unit 35 unit/kg (3000 unit) IVP Q6H PRN PRN Reason: SEE COMMENTS Stop: 02/13/18 15:10 Heparin Sodium/Dextrose (Heparin 25,000 Unit/500 Ml D5w) 25,000 unit in 500 mls @ 23.716 mls/hr IVC .Q21H5M [facility]OLE; 14 UNIT/KG/HR PRN Reason: Protocol Stop: 02/13/18 15:16 Last Titration: 08/15/17 07:41 Dose: 12 unit/kg/hr, 20.328 mls/hr Metoprolol Succinate (Toprol Xl) 100 mg PO BID [facility] Stop: 02/14/18 21:01 Metoprolol Tartrate (Lopressor) 5 mg IVP Q6HR PRN PRN Reason: Tachycardia Stop: 02/08/18 19:08 Naloxone HCl (Narcan) 0.4 mg IVP Q2MIN PRN PRN Reason: SEE COMMENTS Stop: 02/08/18 18:05 Ondansetron HCl (Zofran) 4 mg IVP Q8HR PRN PRN Reason: Nausea And Vomiting Stop: 02/08/18 18:05 Oxycodone HCl (Oxycodone Oral Conc) 5 mg SL Q4H PRN; Protocol PRN Reason: mild to moderate pain Stop: 09/02/18 18:05 Potassium Chloride (Potassium Chloride) 20 meq PO DAILY [facility] Stop: 02/10/18 15:01 Last Admin: 08/15/17 07:39 Dose: 20 meq Laboratory Tests 08/14/17 08/15/17 08/15/17 04:00 05:41 05:41 INR 1.9 Potassium 4.0 Creatinine 1.11 Magnesium 1.8 - Imaging and Cardiology Chest Xray: report reviewed Echo: report reviewed Cardiac cath: report reviewed - EKG Interpretation EKG results cardiology: other (Telemetry reviewed with average HR previous 12 hours noted to be 104, a.fib. PVCs noted.) - VTE Documentation of Mechanical Device: Intermittent pneumatic compression device Consult Discharge Plan - Plan Referrals: Coumadin,Clinic [Other] - 08/18/17 4:45 pm (Go to red light at [facility] turn left then the first right. The first visit is 1 hour long. Take list of medication with you including over the counter meds. Take your Bottle of Warfin with you to the appointment) Jimmy Andrew MD [Primary Care Provider] - 08/22/17 11:30 am ()
[2017-08-15] MEDS ORDERED: *HR* Warfarin 5 MG TABLET PO ONE ×2 (11:03→18:00)
[2017-08-15] MEDS: Heparin 25,000 UNIT/500 ML D5W 25,000 UNIT/500 ML BAG IVC SCH (15:08)
[2017-08-15 16:29] VITALS: BP 109/80
[2017-08-15] MEDS ORDERED: *HR* Digoxin 0.5 MG/2 ML AMPUL IVP ONE (16:45)
[2017-08-15] MEDS ORDERED: *HR* Warfarin 2 MG TABLET PO ONE ×2 (18:00)
[2017-08-15] MEDS ORDERED: Warfarin perPT PO PRN (18:00)
[2017-08-15] MEDS ORDERED: Metoprolol XL (24 HR) Succ 50 MG TAB.ER.24H PO SCH (21:00)
== END 2017-08-15 18:20 | disposition home or self-care (01) | DRG 286 ==
LOC: 2NNU 17:32 → SUATTDRO 17:32
PROVIDERS: ADMIT Internal Medicine; ATTEND Hospitalist